=== PATIENT | female | born 1950 | race Caucasian/White ===

== ENCOUNTER 2017-04-12 18:25 | Emergency (ER) | payer MEDICARE, SELFPAY ==
[2017-04-12 18:26] VITALS: BP 129/81; PULSE 69; RESP 14; TEMP 36.7; O2SAT 98; BMI 28.3
--- NOTE | 2017-04-12 18:34 | XR_ITS ---
XR chest 2V Ordering Physician: Catracho Fernando MD Patient Age: 67 years: Female HISTORY: ITS.REASON: chest pressure TECHNIQUE: PA and lateral chest COMPARISON :08/05/2011 chest 2 views FINDINGS . The lungs well expanded and clear with no active disease. No significant change since prior study . Small calcified granulomas at periphery the right lung projecting over the posterior seventh. This is similar to 2012 CXR. The lateral view appears stable with no significant new findings. Mild degenerative changes mid T-spine with very slight loss of height mid thoracic vertebral body again noted and stable. Ribs intact. No pleural effusion or pleural findings IMPRESSION: Lungs clear no active disease.
--- NOTE | 2017-04-12 19:08 | HMH.EDCP ---
ED Disposition Condition on Discharge: Good Time of Disposition: 21:36 - Critical Care Critical Care Time: No <CarlosKilo - Last Filed: 04/12/17 21:31> Condition on Discharge: Good <Catracho Fernando - Last Filed: 04/08/18 12:56> Clinical Impression: Atypical chest pain Disposition: Home, Self-Care Instructions: DI for Atypical Chest Pain Referrals: Sukhwinder Beasley MD [Staff Physician] - Attestation: On 04/12/17, the high probability of a clinically significant, sudden or life threatening deterioration of the following system(s) required my full and direct attention, intervention and personal management. The time I documented below is in addition to time spent performing reported procedures but includes the following listed in this critical care notation. Medical Decision Making - Medical Records Medical records reviewed: Yes: I reviewed the patient's medical records. - Natanael Inquiry Pt receiving controlled substance: No Natanael was queried for this patient: No - Lab Data Result diagrams: 04/12/17 18:30 04/12/17 18:30 <Catracho Fernando - Last Filed: 04/08/18 12:56> Vital Signs: 04/12/17 18:26 04/12/17 22:01 Temperature 98.1 F 98.6 F Temperature Source Oral Oral Pulse Rate 65 Pulse Rate [Left Brachial] 69 Respiratory Rate 14 16 Blood Pressure 130/91 Blood Pressure [Right Arm] 129/81 Blood Pressure Mean [Right Arm] 97 Blood Pressure Source Automatic Cuff Blood Pressure Source [Right Arm] Automatic Cuff Blood Pressure Position Supine Blood Pressure Position [Right Arm] Supine 02 Sat by Pulse Oximetry 98 Oxygen Delivery Method Room Air Room Air - Lab Data Lab Results 04/12/17 18:30: WBC 6.8, RBC 4.44, Hgb 12.5, Hct 39.0, MCV 87.7, MCH 28.2, MCHC 32.1, RDW 12.6, Plt Count 241, MPV 7.6, Neut % (Auto) 52.4, Lymph % (Auto) 40.5, [place] % (Auto) 5.8, Eos % (Auto) 0.9, Baso % (Auto) 0.4, Neut # (Auto) 3.6, Lymph # (Auto) 2.8, [place] # (Auto) 0.4, Eos # (Auto) 0.1, Baso # (Auto) 0.0 04/12/17 18:30: Sodium 141, Potassium 3.8, Chloride 104, Carbon Dioxide 32, Anion Gap 8.8, BUN 17, Creatinine 0.75, Estimated Creat Clear 62, Estimated GFR > 60, Est GFR ( Amer) > 60, Glucose 93, Calcium 8.9, Total Bilirubin 0.2, AST 16, ALT 31, Alkaline Phosphatase 56, Total Creatine Kinase 57, CK-MB (CK-2) < 0.5, CK-MB (CK-2) Rel Index 0.9, Troponin I < 0.02, Total Protein 6.4, Albumin 3.5, Globulin 2.9, Albumin/Globulin Ratio 1.2 Orders (Tests/Meds): ED MEDICATIONS Discontinued Medications Generic Name Dose Route Start Last Admin Trade Name Freq PRN Reason Stop Dose Admin Belladonna Alkaloids 60 ml 04/12/17 19:12 04/12/17 19:25 Gi Cocktail 60ml Udc PO 04/12/17 19:13 60 ml ONCE ONE Administration Ketorolac Tromethamine 30 mg 04/12/17 21:39 04/12/17 21:59 Toradol 30mg/Ml Vial IV 04/12/17 21:40 30 mg ONCE ONE Administration Sodium Chloride 10 ml 04/12/17 18:34 Saline Flush 10ml Syringe IV 05/12/17 18:33 NEEDED PRN Maintain IV Site Chest Pain HPI - JIE Score Non-Stemi Age of patient: 65 yrs or more Number of risk factors for CAD: Presence of less than 3 Prior coronary artery stenosis(seen in coronary angiography): Less than 50% ST-Segment deviation on ECG (more than 1 min): Absent Prior aspirin intake: No ASA in the last 7 days Severe anginal chest pain: No or one episode in last 24 hours Elevated cardiac markers(CK-MB or troponin): Absent Non-Stemi Risk Score: 1 Risk Stratification: 0-2= Low Risk Patients <Kilo Gonzalez - Last Filed: 04/12/17 21:31> - General Mode of Arrival: Ambulatory Limitations: No Limitations Description of Symptoms (Recalled from ER Triage Doc. by RN): PT C/OPRESSURE IN HER EPIGASTRIC/ CHEST AREA THAT HAS BEEN ONGOING FOR THE. PAST COUPLE OF DAYS. PT ADVISES SHE HAD THE FLU LAST WEEK - History of Present Illness MD complaint: other (up
[2017-04-12 19:11] LABS: Alanine Aminotransferase 31 U/L (12-78); Albumin Level 3.5 gm/dL (3.4-5.0); Albumin/Globulin Ratio 1.2 (1.1-1.8); Alkaline Phosphatase 56 U/L (46-116); Anion Gap 8.8 mEq/L (5-15); Aspartate Amino Transferase 16 U/L (15-37); Bilirubin,Total 0.2 mg/dL (0.2-1.0); Blood Urea Nitrogen 17 mg/dL (7-18); Calcium 8.9 mg/dL (8.5-10.1); Carbon Dioxide 32 mmol/L (21.0-32.0); Chloride 104 mmol/L (98-107); Creatine Kinase 57 U/L (26-140); Creatinine Clearance Estimated 62 mg/ml (0-300); Creatinine,Serum 0.75 mg/dL (0.55-1.02); Estimated Glomerular Filt Rate > 60 ml/min (>60); GFR (African American) > 60 ML/MIN (>60); Globulin 2.9 gm/dl (1.3-3.2); Glucose 93 mg/dL (74-106); Potassium 3.8 mmoL/L (3.5-5.1); Sodium 141 mmol/L (136-145); Total Protein,Serum 6.4 gm/dL (6.4-8.2); Troponin I < 0.02 ng/ml (0.00-0.06)
--- NOTE | 2017-04-12 19:11 | ED_ITS ---
ED Disposition Condition on Discharge: Good Time of Disposition: 21:36 - Critical Care Critical Care Time: No <CarlosKilo - Last Filed: 04/12/17 21:31> Condition on Discharge: Good <Catracho Fernando - Last Filed: 04/08/18 12:56> Clinical Impression: Atypical chest pain Disposition: Home, Self-Care Instructions: DI for Atypical Chest Pain Referrals: Sukhwinder Beasley MD [Staff Physician] - Attestation: On 04/12/17, the high probability of a clinically significant, sudden or life threatening deterioration of the following system(s) required my full and direct attention, intervention and personal management. The time I documented below is in addition to time spent performing reported procedures but includes the following listed in this critical care notation. Medical Decision Making - Medical Records Medical records reviewed: Yes: I reviewed the patient's medical records. - Natanael Inquiry Pt receiving controlled substance: No Natanael was queried for this patient: No - Lab Data Result diagrams: 04/12/17 18:30 04/12/17 18:30 <Catracho Fernando - Last Filed: 04/08/18 12:56> Vital Signs: 04/12/17 18:26 04/12/17 22:01 Temperature 98.1 F 98.6 F Temperature Source Oral Oral Pulse Rate 65 Pulse Rate [Left Brachial] 69 Respiratory Rate 14 16 Blood Pressure 130/91 Blood Pressure [Right Arm] 129/81 Blood Pressure Mean [Right Arm] 97 Blood Pressure Source Automatic Cuff Blood Pressure Source [Right Arm] Automatic Cuff Blood Pressure Position Supine Blood Pressure Position [Right Arm] Supine 02 Sat by Pulse Oximetry 98 Oxygen Delivery Method Room Air Room Air - Lab Data Lab Results 04/12/17 18:30: WBC 6.8, RBC 4.44, Hgb 12.5, Hct 39.0, MCV 87.7, MCH 28.2, MCHC 32.1, RDW 12.6, Plt Count 241, MPV 7.6, Neut % (Auto) 52.4, Lymph % (Auto) 40.5, [place] % (Auto) 5.8, Eos % (Auto) 0.9, Baso % (Auto) 0.4, Neut # (Auto) 3.6, Lymph # (Auto) 2.8, [place] # (Auto) 0.4, Eos # (Auto) 0.1, Baso # (Auto) 0.0 04/12/17 18:30: Sodium 141, Potassium 3.8, Chloride 104, Carbon Dioxide 32, Anion Gap 8.8, BUN 17, Creatinine 0.75, Estimated Creat Clear 62, Estimated GFR > 60, Est GFR ( Amer) > 60, Glucose 93, Calcium 8.9, Total Bilirubin 0.2, AST 16, ALT 31, Alkaline Phosphatase 56, Total Creatine Kinase 57, CK-MB (CK-2) < 0.5, CK-MB (CK-2) Rel Index 0.9, Troponin I < 0.02, Total Protein 6.4, Albumin 3.5, Globulin 2.9, Albumin/Globulin Ratio 1.2 Orders (Tests/Meds): ED MEDICATIONS Discontinued Medications Generic Name Dose Route Start Last Admin Trade Name Freq PRN Reason Stop Dose Admin Belladonna Alkaloids 60 ml 04/12/17 19:12 04/12/17 19:25 Gi Cocktail 60ml Udc PO 04/12/17 19:13 60 ml ONCE ONE Administration Ketorolac Tromethamine 30 mg 04/12/17 21:39 04/12/17 21:59 Toradol 30mg/Ml Vial IV 04/12/17 21:40 30 mg ONCE ONE Administration Sodium Chloride 10 ml 04/12/17 18:34 Saline Flush 10ml Syringe IV 05/12/17 18:33 NEEDED PRN Maintain IV Site
[2017-04-12 19:20] LABS: CKMB Relative Index 0.9 U/L (0-4.0); Creatine Kinase MB < 0.5 mg/ml (0.0-3.6)
[2017-04-12 19:43] LABS: Basophils % 0.4 % (0.1-2.0); Eosinophils # 0.1 K/mm3 (0.0-0.4); Eosinophils % 0.9 % (0.1-12.0); Hemoglobin 12.5 g/dL (12.2-16.2); Lymphocytes # 2.8 K/mm3 (0.7-4.5); Lymphocytes % 40.5 K/mm3 (10-50); Mean Corpuscular HGB Conc 32.1 g/dL (31.8-35.4); Mean Corpuscular Hemoglobin 28.2 pg (27.0-31.2); Mean Corpuscular Volume 87.7 fl (81-99); Mean Platelet Volume 7.6 fl (7.4-10.4); Monocytes # 0.4 K/mm3 (0.1-1.0); Monocytes % 5.8 % (1.7-9.3); Neutrophils # 3.6 K/mm3 (1.8-7.8); Neutrophils % 52.4 % (37.0-80.0); Platelet Count 241 K/mm3 (142-424); Red Blood Count 4.44 M/mm3 (4.20-5.40); Red Cell Distribution Width 12.6 % (11.5-17.5); White Blood Count 6.8 K/mm3 (4.8-10.8)
[2017-04-12 22:01] VITALS: BP 130/91; PULSE 65; RESP 16; TEMP 37
== END 2017-04-12 22:10 | disposition home or self-care (01) ==
PROVIDERS: Family Medicine; Emergency Provider Emergency Medicine; PCP Family Medicine
DX: R07.89 Other chest pain (principal)
CPT/HCPCS: 71046; 80053; 82550; 82553; 84484; 85025; 93005; 93041; 96374; 99284

== ENCOUNTER → 2017-05-22 10:12 | Outpatient (CLI) | payer MEDICARE, SELFPAY ==
--- NOTE | 2017-05-22 10:22 | XR_ITS ---
XR KUB CLINICAL INDICATION: ITS.REASON: ABD BLOATING, CONSTIPATION ORDERING PHYSICIAN: Lynnette Donato PATIENT AGE: 67 years COMPARISON: None FINDINGS: There is a moderate amount retained colonic feces in the ascending colon. No evidence of small bowel obstruction or other acute anomalies. Facet arthritic changes are present on the right at L4-5. IMPRESSION: Constipation
== END ==
PROVIDERS: PCP Nurse Practitioner Family; Visit Provider Nurse Practitioner Family
DX: R14.0 Abdominal distension (gaseous) (principal); K59.01 Slow transit constipation
CPT/HCPCS: 74018

== ENCOUNTER → 2017-05-25 10:22 | Outpatient (CLI) | payer MEDICARE, SELFPAY ==
--- NOTE | 2017-05-25 10:37 | XR_ITS ---
XR abdomen min 2V HISTORY: ITS.REASON: ABD PAIN, SLOW TRANSIT CONSTIPATION, NAUSEA ORDERING PHYSICIAN: Lynnette Donato PATIENT AGE: 67 years COMPARISON: None FINDINGS: There is a moderate amount retained colonic feces greater in the right colon and transverse colon and proximal descending colon. No evidence of rectal fecal impaction. There is mild wedging of the left lateral aspect of L2. No urolithiasis. IMPRESSION: Constipation
[2017-05-25 10:47] LABS: Basophils % 0.7 % (0.1-2.0); Eosinophils % 0.8 % (0.1-12.0); Hematocrit 44.5 % (37.0-47.0); Hemoglobin 13.9 g/dL (12.2-16.2); Lymphocytes # 1.4 K/mm3 (0.7-4.5); Lymphocytes % 32.1 K/mm3 (10-50); Mean Corpuscular HGB Conc 31.2 g/dL (31.8-35.4); Mean Corpuscular Hemoglobin 28.1 pg (27.0-31.2); Mean Platelet Volume 7.9 fl (7.4-10.4); Monocytes # 0.3 K/mm3 (0.1-1.0); Monocytes % 7.1 % (1.7-9.3); Neutrophils # 2.6 K/mm3 (1.8-7.8); Neutrophils % 59.4 % (37.0-80.0); Platelet Count 234 K/mm3 (142-424); Red Blood Count 4.95 M/mm3 (4.20-5.40); White Blood Count 4.4 K/mm3 (4.8-10.8)
[2017-05-25 11:05] LABS: Alanine Aminotransferase 29 U/L (12-78); Albumin Level 3.5 gm/dL (3.4-5.0); Albumin/Globulin Ratio 1.1 (1.1-1.8); Alkaline Phosphatase 66 U/L (46-116); Amylase 67 U/L (25-125); Anion Gap 9.9 mEq/L (5-15); Aspartate Amino Transferase 12 U/L (15-37); Bilirubin,Total 0.3 mg/dL (0.2-1.0); Blood Urea Nitrogen 12 mg/dL (7-18); Calcium 9.1 mg/dL (8.5-10.1); Carbon Dioxide 30 mmol/L (21.0-32.0); Chloride 108 mmol/L (98-107); Creatinine,Serum 0.76 mg/dL (0.55-1.02); Estimated Glomerular Filt Rate 76 ml/min (>60); GFR (African American) 92 ML/MIN (>60); Globulin 3.2 gm/dl (1.3-3.2); Glucose 98 mg/dL (74-106); Lipase 160 u/L (73-393); Potassium 5.9 mmoL/L (3.5-5.1); Sodium 142 mmol/L (136-145); Total Protein,Serum 6.7 gm/dL (6.4-8.2)
== END ==
PROVIDERS: PCP Nurse Practitioner Family; Visit Provider Nurse Practitioner Family
DX: R10.84 Generalized abdominal pain (principal); K59.01 Slow transit constipation; R11.0 Nausea
CPT/HCPCS: 36415; 74019; 80053; 82150; 83690; 85025

== ENCOUNTER 2017-07-19 10:27 | Day surgery (SDC) | payer MEDICARE, SELFPAY ==
[2017-07-15 14:09] VITALS: BMI 27.4
[2017-07-19 10:40] VITALS: BP 117/83; PULSE 74; RESP 18; TEMP 36.6; O2SAT 98
[2017-07-19 11:25] VITALS: O2SAT 98
--- NOTE | 2017-07-19 11:32 | P.PN_ITS ---
[facility] Anesthesia Checklist - Patient Identification Patient Identification: Arm Band, Verbal (Name & ) - Structural Data Admitted From: Home Consent for Planned Operative Procedure(s) Verified: Yes Verified Documents: Surgical Consent, History and Physical - NPO Status Verified Time NPO: 00:00 - Additional verifications Patient : No Anesthesia Reactions: No - Airway Assessment C-Spine Mobility Assessed: Yes TMJ Mobility Assessed: Yes Dentition: Dentures-good fit - Neurological Assessment Level of Consciousness: Awake Hx Seizures: No Numbness or tingling in extremities: No - Anesthesia Plan Anesthesia Risk discussed: Yes Anesthesia Plan: Verified ASA Class: II Anesthesia Type: MAC [facility] Anesthesia HX I have reviewed the patient's past medical history: Yes Medical History: Reports:: Anxiety, Gastroesophageal Reflux Disease(GERD), Hyperlipidemia, Hypertension Denies:: Cancer, Diabetes Mellitus Type 1, Diabetes Mellitus Type 2, Internal Pacemaker, Lung Disease, MRSA, Seizures Other Surgeries: No: Pacemaker Amputation: No Fractures: No
--- NOTE | 2017-07-19 11:56 | HMH.PROC ---
[facility] Procedure Note Procedure Note:: Colonoscopy Procedure Report: Colonoscopy with cold snare polypectomy and hemorrhoid band ligation Endoscopist: Bairon Chang II, MD Referring physician: Lynnette CUI Date of Procedure: July 19, 2017 Equipment: Olympus 180 variable stiffness pediatric colonoscope Sedation: MAC sedation Indication: Mrs. Martino is a 67-year-old female who is here for follow-up screening/surveillance colonoscopy. This is her second colonoscopy and her first colonoscopy 4 or 5 years ago in [place] revealed no colon polyps. The patient does state that her father (early 60s) and brother (age 58) had colon cancer. Her brother had more advanced colon cancer. The patient does have some bright red rectal bleeding attributable to prolapsed internal hemorrhoids. She does have a history of IBS with both constipation alternating with diarrhea. She has had some dyspepsia and reflux which has improved. She attributes this to stress. She reports no weight loss. Procedure: Prior to the procedure, a history and physical exam was performed, and patient's medications and allergies were reviewed. The risks, benefits and alternatives of the sedation and procedure were discussed with the patient. All questions were answered and informed consent was obtained. The patient was brought to the procedure room. Patient identification and proposed procedure were verified by the physician and the nurse. The patient was placed in a left lateral decubitus position and the scope was passed under direct vision. Throughout the procedure, the patient's blood pressure, pulse, and oxygen saturations were monitored continuously. The colonoscopy was accomplished without difficulty. The patient tolerated the procedure well. Findings: On digital rectal examination there was normal rectal tone. There were no external hemorrhoids. The colonoscope was introduced through the anal canal to the rectum and advanced to the cecum. The ileocecal valve and appendiceal orifice were identified. The scope was advanced a short distance into the ileum which appeared grossly normal. The scope was then withdrawn into the colon. There were 3 colon polyps identified in the ascending ?2 and descending ?1. These ranged in size from 3-7 mm and were all removed via cold snare polypectomy. There were very mildly scattered diverticuli throughout the descending and sigmoid colon (LEFT colon). The rectum itself was normal. Upon retroflexion within the rectum there were grade 2 internal hemorrhoids. There was active cryptitis. The hemorrhoids were banded using 3 bands with excellent ligation effect. Impression: 1. Colonic polyps ?3 2. Mild left-sided diverticulosis 3. Grade 2 internal hemorrhoids with active cryptitis status post band ligation ?3 Plan: I will follow up the polyp pathology and recommend repeat colonoscopy again in 5 years based upon the polyp histology. I would encourage fiber supplementation on a long-term daily maintenance basis.
[2017-07-19 12:15] VITALS: BP 118/71; PULSE 72; O2SAT 100
[2017-07-19 12:18] VITALS: BP 106/68; PULSE 76; RESP 20; TEMP 36.2; O2SAT 98
[2017-07-19 12:35] VITALS: BP 108/78; PULSE 73; RESP 16; O2SAT 100
[2017-07-19 13:02] VITALS: BP 129/84; PULSE 78; RESP 16; TEMP 36.2; O2SAT 100
== END 2017-07-19 13:02 | disposition home health service (06) ==
LOC: OUTP 10:29
PROVIDERS: PCP Family Medicine; Visit Provider Internal Medicine Gastroenterology
PROC: 0DJD8ZZ Inspection of Lower Intestinal Tract, Via Natural or Artificial Opening Endoscopic (ICD-10-PCS; CPT 45378; principal; 2017-07-19 11:30)
DX: Z12.11 Encounter for screening for malignant neoplasm of colon (principal); Z80.0 Family history of malignant neoplasm of digestive organs; K58.2 Mixed irritable bowel syndrome; K63.5 Polyp of colon; K57.30 Diverticulosis of large intestine without perforation or abscess without bleeding; K64.1 Second degree hemorrhoids
CPT/HCPCS: 45385; 45398; 88305

== ENCOUNTER → 2017-11-18 08:44 | Outpatient (CLI) | payer MEDICARE, SELFPAY ==
--- NOTE | 2017-11-18 08:49 | FL_ITS ---
FL upper GI esophagus w/air HISTORY: Difficulty swallowing, GERD ORDERING PHYSICIAN: Chris Dodge MD PATIENT AGE: 67 years Comparison: None FINDINGS: The esophagus, stomach, and duodenum have an unremarkable appearance. There is a small sliding hiatal hernia . Reflux was not demonstrated during exam. No ulcer or mass evident. No mucosal abnormalities apparent. There is normal peristalsis. The duodenal C-loop is nondisplaced.. There is a small diverticulum projecting off the transverse portion of the duodenum FLUOROSCOPY TIME : 1 minute 25 seconds. IMPRESSION: Small sliding hiatal hernia otherwise negative upper
== END ==
PROVIDERS: PCP Family Medicine; Visit Provider Internal Medicine Adolescent Medicine
DX: K21.9 Gastro-esophageal reflux disease without esophagitis (principal); R09.89 Other specified symptoms and signs involving the circulatory and respiratory systems
CPT/HCPCS: 74241

== ENCOUNTER → 2018-01-31 16:15 | Outpatient (CLI) | payer MEDICARE, SELFPAY ==
[2018-01-31 16:32] LABS: Basophils % 0.3 % (0.1-2.0); Eosinophils # 0.1 K/mm3 (0.0-0.4); Eosinophils % 1.1 % (0.1-12.0); Hemoglobin 13.8 g/dL (12.2-16.2); Lymphocytes # 2.3 K/mm3 (0.7-4.5); Lymphocytes % 29.8 K/mm3 (10-50); Mean Corpuscular HGB Conc 32.9 g/dL (31.8-35.4); Mean Corpuscular Hemoglobin 29.3 pg (27.0-31.2); Mean Platelet Volume 7.6 fl (7.4-10.4); Monocytes # 0.4 K/mm3 (0.1-1.0); Monocytes % 5.5 % (1.7-9.3); Neutrophils # 4.9 K/mm3 (1.8-7.8); Neutrophils % 63.2 % (37.0-80.0); Platelet Count 241 K/mm3 (142-424); Red Blood Count 4.71 M/mm3 (4.20-5.40); Red Cell Distribution Width 13.2 % (11.5-17.5); White Blood Count 7.8 K/mm3 (4.8-10.8)
[2018-01-31 18:22] LABS: Alanine Aminotransferase 31 U/L (12-78); Albumin Level 3.7 gm/dL (3.4-5.0); Albumin/Globulin Ratio 1.2 (1.1-1.8); Alkaline Phosphatase 80 U/L (46-116); Anion Gap 11.2 mEq/L (5-15); Aspartate Amino Transferase 15 U/L (15-37); Bilirubin,Total 0.2 mg/dL (0.2-1.0); Blood Urea Nitrogen 19 mg/dL (7-18); Calcium 8.9 mg/dL (8.5-10.1); Carbon Dioxide 28 mmol/L (21.0-32.0); Chloride 104 mmol/L (98-107); Estimated Glomerular Filt Rate 72 ml/min (>60); Free Thyroxine Index 2.5 ug/dL (5.93-13.13); GFR (African American) 87 ML/MIN (>60); Globulin 3.2 gm/dl (1.3-3.2); Glucose 81 mg/dL (74-106); Potassium 4.2 mmoL/L (3.5-5.1); Sodium 139 mmol/L (136-145); T4 (Thyroxine) 7.7 ug/dl (4.7-13.3); Total Protein,Serum 6.9 gm/dL (6.4-8.2); Triiodothryronine (T3) Uptake 33 % (31-39)
[2018-02-02 15:56] LABS: Vitamin B12 424 pg/mL (232-1245); Vitamin D 25 Hydroxy 17.2 ng/mL (30.0-100.0)
== END ==
PROVIDERS: PCP Internal Medicine Adolescent Medicine; Visit Provider Internal Medicine Adolescent Medicine
DX: R25.1 Tremor, unspecified (principal)
CPT/HCPCS: 36415; 80053; 82607; 82652; 83735; 84436; 84443; 84479; 85025

== ENCOUNTER → 2018-06-01 15:17 | Outpatient (CLI) | payer MEDICARE, SELFPAY ==
[2018-06-01 15:40] LABS: Basophils % 0.7 % (0.1-2.0); Eosinophils % 0.6 % (0.1-12.0); Hematocrit 43.8 % (37.0-47.0); Hemoglobin 14.4 g/dL (12.2-16.2); Lymphocytes # 1.7 K/mm3 (0.7-4.5); Lymphocytes % 35.1 % (10-50); Mean Corpuscular HGB Conc 32.9 g/dL (31.8-35.4); Mean Corpuscular Hemoglobin 29.2 pg (27.0-31.2); Mean Corpuscular Volume 88.6 fl (81-99); Mean Platelet Volume 7.7 fl (7.4-10.4); Monocytes # 0.3 K/mm3 (0.1-1.0); Monocytes % 6.9 % (1.7-9.3); Neutrophils # 2.7 K/mm3 (1.8-7.8); Neutrophils % 56.8 % (37.0-80.0); Platelet Count 252 K/mm3 (142-424); Red Blood Count 4.94 M/mm3 (4.20-5.40); Red Cell Distribution Width 13.6 % (11.5-17.5); White Blood Count 4.7 K/mm3 (4.8-10.8)
[2018-06-01 16:36] LABS: Alanine Aminotransferase 24 U/L (12-78); Albumin Level 3.6 gm/dL (3.4-5.0); Albumin/Globulin Ratio 1.2 (1.1-1.8); Alkaline Phosphatase 77 U/L (46-116); Anion Gap 13.4 mEq/L (5-15); Aspartate Amino Transferase 9 U/L (15-37); Bilirubin,Total 0.4 mg/dL (0.2-1.0); Blood Urea Nitrogen 20 mg/dL (7-18); Calcium 9.2 mg/dL (8.5-10.1); Carbon Dioxide 27 mmol/L (21.0-32.0); Chloride 103 mmol/L (98-107); Creatinine,Serum 0.68 mg/dL (0.55-1.02); Estimated Glomerular Filt Rate 87 ml/min (>60); Free Thyroxine Index 2.5 ug/dL (5.93-13.13); GFR (African American) 105 ML/MIN (>60); Glucose 75 mg/dL (74-106); Potassium 4.4 mmoL/L (3.5-5.1); Sodium 139 mmol/L (136-145); T4 (Thyroxine) 6.6 ug/dl (4.7-13.3); Thyroid Stimulating Hormone 1.56 uIU/ml (0.358-3.740); Total Protein,Serum 6.6 gm/dL (6.4-8.2); Triiodothryronine (T3) Uptake 38 % (31-39)
[2018-06-03 10:54] LABS: Vitamin B12 409 pg/mL (232-1245)
[2018-06-07 06:15] LABS: Methylmalonic Acid 136 nmol/L (0-378)
== END ==
PROVIDERS: Visit Provider Internal Medicine Adolescent Medicine
DX: R44.1 Visual hallucinations (principal); R29.810 Facial weakness; Z79.899 Other long term (current) drug therapy
CPT/HCPCS: 36415; 80053; 82131; 82607; 84436; 84443; 84479; 85025

== ENCOUNTER → 2018-06-06 09:56 | Outpatient (CLI) | payer MEDICARE, SELFPAY ==
--- NOTE | 2018-06-06 09:58 | MR_ITS ---
MR head/brain wo con HISTORY: ITS.REASON: VISUAL HALLUCINATION ORDERING PHYSICIAN: Sukhwinder Pickens MD PATIENT AGE: 68 years Comparison: None TECHNIQUE: Standard multiplanar multiecho sequences are performed without contrast. FINDINGS: No midline shift, mass effect, intracranial hemorrhage, or hydrocephalus. No evidence of acute infarction. The cerebellopontine angles, cerebellum and brainstem have an unremarkable appearance. No temporal lobe mass. There are only a few scattered T2 white matter hyperintensities noted. The hippocampal gyri are unremarkable and the temporal horns are symmetric. No pituitary, optic chiasm, corpus callosum, and craniocervical junction are unremarkable. No mastoid effusion or sinus air-fluid level. IMPRESSION: Essentially negative MRI of the brain without contrast
== END ==
PROVIDERS: PCP Internal Medicine Adolescent Medicine; Visit Provider Internal Medicine Adolescent Medicine
DX: R44.1 Visual hallucinations (principal)
CPT/HCPCS: 70551

== ENCOUNTER → 2019-01-09 11:45 | Outpatient (CLI) | payer MEDICARE, SELFPAY ==
[2019-01-09 12:17] LABS: Basophils % 0.8 % (0.1-2.0); Eosinophils % 0.8 % (0.1-12.0); Hematocrit 43.4 % (37.0-47.0); Hemoglobin 13.2 g/dL (12.2-16.2); Lymphocytes # 1.8 K/mm3 (0.7-4.5); Lymphocytes % 33.9 % (10-50); Mean Corpuscular HGB Conc 30.4 g/dL (31.8-35.4); Mean Corpuscular Hemoglobin 27.8 pg (27.0-31.2); Mean Corpuscular Volume 91.6 fl (81-99); Mean Platelet Volume 7.4 fl (7.4-10.4); Monocytes # 0.4 K/mm3 (0.1-1.0); Monocytes % 6.8 % (1.7-9.3); Neutrophils % 57.7 % (37.0-80.0); Platelet Count 246 K/mm3 (142-424); Red Blood Count 4.74 M/mm3 (4.20-5.40); Red Cell Distribution Width 13.9 % (11.5-17.5); White Blood Count 5.2 K/mm3 (4.8-10.8)
[2019-01-09 14:22] LABS: Alanine Aminotransferase 19 U/L (12-78); Albumin Level 3.4 gm/dL (3.4-5.0); Albumin/Globulin Ratio 1.2 (1.1-1.8); Alkaline Phosphatase 58 U/L (46-116); Anion Gap 10.5 mEq/L (5-15); Aspartate Amino Transferase 9 U/L (15-37); Bilirubin,Total 0.3 mg/dL (0.2-1.0); Blood Urea Nitrogen 15 mg/dL (7-18); Calcium 9.1 mg/dL (8.5-10.1); Carbon Dioxide 29 mmol/L (21.0-32.0); Chloride 106 mmol/L (98-107); Estimated Glomerular Filt Rate 100 ml/min (>60); GFR (African American) 121 ML/MIN (>60); Globulin 2.8 gm/dl (1.3-3.2); Glucose 87 mg/dL (74-106); Potassium 4.5 mmoL/L (3.5-5.1); Sodium 141 mmol/L (136-145); Thyroid Stimulating Hormone 2.29 uIU/ml (0.358-3.740); Total Protein,Serum 6.2 gm/dL (6.4-8.2)
[2019-01-10 09:10] LABS: Vitamin B12 429 pg/mL (232-1245); Vitamin D 25 Hydroxy 34.3 ng/mL (30.0-100.0)
[2019-01-12 06:10] LABS: Rapid Plasma Reagin Ab Titer Non Reactive (NonRea<1:1)
== END ==
PROVIDERS: Visit Provider Nurse Practitioner Family
DX: Z79.899 Other long term (current) drug therapy (principal)
CPT/HCPCS: 36415; 80053; 82607; 82652; 84443; 85025; 86592

== ENCOUNTER → 2020-11-17 14:21 | Outpatient (CLI) | payer MEDICARE, SELFPAY | PROVIDERS: PCP Family Medicine; Visit Provider Family Medicine | DX: Z20.822 Contact with and (suspected) exposure to COVID-19 (principal) | CPT/HCPCS: U0003 ==

== ENCOUNTER → 2020-11-20 08:16 | Outpatient (CLI) | payer MEDICARE, SELFPAY ==
--- NOTE | 2020-11-20 08:19 | FL_ITS ---
PROCEDURE: FL BARIUM SWALLOW CLINICAL INDICATION: ESOPHAGEAL DYSPHAGIA COMPARISON: No exams were available for comparison TECHNIQUE: In the upright position the patient was observed to swallow barium in both the AP and lateral view. The cervical esophagus was examined under fluoroscopy with images obtained. The patient was then placed prone in the right anterior oblique position and was observed to swallow barium with Valsalva technique . FLUOROSCOPY TIME: 34 seconds FINDINGS: There was no evidence of aspiration. There was normal peristalsis. No filling defects or mucosal abnormalities. No masses or strictures. No hiatal hernia. Reflux was not demonstrated during the exam IMPRESSION: Negative barium swallow. Dictated by: Sánchez Gaxiola MD 11/20/2020 14:52 Sánchez Gaxiola MD in [place] 11/20/2020 14:52
--- NOTE | 2020-11-20 08:20 | US_ITS ---
PROCEDURE: US ABDOMEN LIMITED CLINICAL INDICATION: EOPHAGEAL DYSPHAGIA COMPARISON: No exams were available for comparison FINDINGS: PANCREAS: Unremarkable. No obvious mass or abnormal fluid collection. No ductal dilatation LIVER: No focal liver lesions demonstrated. Homogeneous echogenicity. No intrahepatic biliary ductal dilatation evident. There is appropriate direction of blood flow within a non dilated portal vein RIGHT KIDNEY: Unremarkable. Normal size and echogenicity. No hydronephrosis GALLBLADDER: There are at least 2 small foci of increased echogenicity along the posterior aspect of the gallbladder wall without obvious shadowing suggesting small polyps measuring 4 mm each. No gallbladder wall thickening, pericholecystic fluid, or biliary dilatation is evident. IMPRESSION: Small gallbladder polyps otherwise negative right upper quadrant ultrasound Dictated by: Sánchez Gaxiola MD 11/20/2020 16:33 Sánchez Gaxiola MD in [place] 11/20/2020 16:33
== END ==
PROVIDERS: PCP Family Medicine; Visit Provider Family Medicine
DX: R13.19 Other dysphagia (principal)
CPT/HCPCS: 74220; 76705

== ENCOUNTER 2021-03-16 15:28 | Emergency (ER) | payer MEDICARE, SELFPAY ==
[2021-03-16 17:18] VITALS: BP 148/66; PULSE 94; RESP 18; TEMP 37.2; O2SAT 97; BMI 29.2
[2021-03-16 17:22] LABS: Apearance,Urine Cloudy (Clear); Color,Urine Dark Yellow (Yellow)
[2021-03-16 17:23] LABS: Bilirubin,Urine 1+ (Negative); Blood, Urine 4+ (Negative); Glucose,Urine (UA) Negative (Negative); Ketones,Urine TRACE (Negative); PH,Urine 5.5 (5.0-8.5); Protein,Urine 2+ (Negative); Specific Gravity, Urine > 1.030 (1.005-1.030); UTC Leukocyte Esterase,Urine 3+ (Negative); UTC Nitrate,Urine Negative (Negative); Urobilinogen,Urine 0.2 EU/dl (0.2)
--- NOTE | 2021-03-16 17:28 | HMH.EDUTC ---
[facility] [place] Clinical Impression: UTI (urinary tract infection) Qualifiers: Urinary tract infection type: site unspecified Hematuria presence: with hematuria Qualified Code(s): N39.0 - Urinary tract infection, site not specified; R31.9 - Hematuria, unspecified Disposition: Home, Self-Care Condition on Discharge: Good Instructions: Urinary Tract Infection, DI for Urinary Tract Infection (UTI), Phenazopyridine Additional Instructions: Drink plenty of fluids. Take tylenol or ibuprofen for pain or fever. Take the medications as directed. Follow up with your regular doctor. GO TO THE ER FOR ANY WORSENING SYMPTOMS The pyridium will make your urine turn orange, this is an expected side effect. It will stain your clothes if it comes into contact with them. Prescriptions: Ondansetron [Zofran 4mg ODT] 4 mg PO Q8HP PRN #12 tab PRN Reason: Nausea Transmission Status: Pending to [id number] Ciprofloxacin HCl [Cipro 500mg Tab] 500 mg PO BID 7 Days #14 tab Transmission Status: Pending to [id number] Phenazopyridine HCl [Pyridium 200mg Tablet] 200 pow PO TID #6 tab Transmission Status: Pending to [id number] Referrals: Maddie Scanlon MD [Primary Care Provider] - Time of Disposition: 17:57 Medical Decision Making - Medical Records Medical records reviewed: No: I reviewed the patient's medical records. - Natanael Inquiry Pt receiving controlled substance: No Vital Signs: 03/16/21 17:18 Temperature 99 F Temperature Source Oral Pulse Rate [Left] 94 H Respiratory Rate 18 Blood Pressure [Right Arm] 148/66 H Blood Pressure Mean [Right Arm] 93 02 Sat by Pulse Oximetry 97 - Lab Data Lab results reviewed: Yes: I reviewed the patient's lab results. Lab Results 03/16/21 17:21: Urine Color Dark yellow, Urine Appearance Cloudy, Urine pH 5.5, Ur Specific [place] > 1.030 H, Urine Protein 2+, Urine Glucose (UA) Negative, Urine Ketones Trace, Urine Blood 4+, Urine Nitrate Negative, Urine Bilirubin 1+ A, Urine Urobilinogen 0.2, Ur Leukocyte Esterase 3+ A Orders (Tests/Meds): ED MEDICATIONS Discontinued Medications Generic Name Dose Route Start Last Admin Trade Name Eligio PRN Reason Stop Dose Admin Ceftriaxone Sodium 1 gm 03/16/21 17:32 03/16/21 17:40 Ceftriaxone 1gm Vial IM 03/16/21 17:33 1 gm ONCE ONE Administration Lidocaine HCl 0 ml 03/16/21 17:33 03/16/21 17:40 Lidocaine 1% 5ml Pf Vial IM 03/16/21 17:34 2 ml ONCE ONE Administration Ondansetron HCl 4 mg 03/16/21 17:32 03/16/21 17:39 Ondansetron 4mg Odt SL 03/16/21 17:33 4 mg ONCE ONE Administration Phenazopyridine HCl 200 mg 03/16/21 17:33 03/16/21 17:39 Phenazopyridine 200mg Tablet PO 03/16/21 17:34 200 mg ONCE ONE Administration ORDERS Category Date Time Status Urine Culture Stat Micro 03/16/21 17:21 Ordered [facility] [place]PI - General Stated complaint: possible bladder infection Time Seen by Provider: 03/16/21 17:28 Mode of Arrival: Ambulatory Source of Information: Patient Limitations: No Limitations Description of Symptoms (Recalled from Triage Doc. by RN): pt c/o burning and pain with urination. started this am. HEENT Symptoms (Recalled from RN notes): No Resp Symptoms (Recalled from RN notes): No Skin Symptoms (Recalled from RN notes): No MS Symptoms (Recalled from RN notes): No Functional Status (Recalled from RN notes): wnl - History of Present Illness Provider Complaint: She states that last night she started having low back pain and urinary frequency. - Related Data Home Medications Medication Instructions Recorded Confirmed PARoxetine HCL [Paxil 20mg Tablet] 20 mg PO DAILY 07/15/17 01/18/18 Omeprazole [Omeprazole 20mg 20 mg PO DAILY 12/30/17 01/18/18 Capsule] Previous Rx's Medication Instructions Recorded Ciprofloxacin HCl [Cipro 500mg 500 mg PO BID 7 Days #14 tab 03/16/21 Tab] Ondansetron [Zof
[2021-03-16 18:00] VITALS: BP 148/66; PULSE 94; RESP 18; TEMP 37.2
== END 2021-03-16 18:02 | disposition home or self-care (01) ==
PROVIDERS: Emergency Provider Nurse Practitioner Family; PCP Family Medicine
DX: N30.01 Acute cystitis with hematuria (principal); F41.9 Anxiety disorder, unspecified; K21.9 Gastro-esophageal reflux disease without esophagitis; E78.5 Hyperlipidemia, unspecified; I10 Essential (primary) hypertension; Z79.899 Other long term (current) drug therapy
CPT/HCPCS: G0463; 81003; 87086; 87088; 87186; 96372; 99202

== ENCOUNTER 2021-09-26 23:34 | Emergency (ER) | payer MEDICARE, SELFPAY ==
[2021-09-26 23:36] VITALS: BP 149/99; RESP 16; TEMP 37.1; O2SAT 96; BMI 30.2
--- NOTE | 2021-09-26 23:55 | XR_ITS ---
PROCEDURE INFORMATION: Exam: XR Chest Exam date and time: 09/27/2021 12:22 AM Age: 71 years old Clinical indication: Injury or trauma; Fall; Blunt trauma (contusions or hematomas); Additional info: Fall left chest pain TECHNIQUE: Imaging protocol: Radiologic exam of the chest. Views: 4 or more views. COMPARISON: CR CXR2V XR chest 2V 04/12/2017 6:41 PM FINDINGS: Lungs: Unremarkable. No consolidation. Pleural spaces: Unremarkable. No pleural effusion. No pneumothorax. Heart/Mediastinum: Unremarkable. No cardiomegaly. Bones/joints: Unremarkable. IMPRESSION: No acute findings.
--- NOTE | 2021-09-26 23:55 | XR_ITS ---
PROCEDURE INFORMATION: Exam: XR Pelvis Exam date and time: 09/27/2021 12:24 AM Age: 71 years old Clinical indication: Injury or trauma; Fall; Blunt trauma (contusions or hematomas); Bilateral; Pelvic region TECHNIQUE: Imaging protocol: Radiologic exam of the pelvis. Views: 1 or 2 view. COMPARISON: CR ABD2V XR abdomen min 2V 05/25/2017 10:40 AM FINDINGS: Bones/joints: Unremarkable. No acute fracture. Soft tissues: Unremarkable. IMPRESSION: No acute findings.
--- NOTE | 2021-09-26 23:56 | CT_ITS ---
PROCEDURE INFORMATION: Exam: CT Cervical Spine Without Contrast Exam date and time: 09/27/2021 12:14 AM Age: 71 years old Clinical indication: Injury or trauma; Fall; Blunt trauma; Additional info: Fall left neck pain TECHNIQUE: Imaging protocol: Computed tomography of the cervical spine without contrast. Radiation optimization: All CT scans at this facility use at least one of these dose optimization techniques: automated exposure control; mA and/or kV adjustment per patient size (includes targeted exams where dose is matched to clinical indication); or iterative reconstruction. COMPARISON: 1. CT HEAD/BRAIN WO CON 09/27/2021 12:11 AM 2. BRAINWO MR head/brain wo con 06/06/2018 10:27 AM FINDINGS: Bones/joints: No acute cervical spine fracture. The facet alignment is preserved bilaterally. The cervical lordosis is mildly reversed. Hypertrophic degenerative changes are identified at the junction of the anterior C1 arch and dens process. Grade 1 anterolisthesis of C7 on T1. Mild retrolisthesis of the bilateral C1 lateral masses on C2. Bilateral TMJ arthropathy. There is volume loss of the anterior C1 arch, likely secondary to arthropathy. Abnormal morphology of the dens process, with posterior projection or spurring. This is chronic compared to the previous MRI. Mild convexity of the cervical spine to the right. Discs/Spinal canal/Neural foramina: Mild degenerative changes are visualized involving the cervical spine. Paranasal sinuses: Effacement of the bilateral pyriform sinuses. Oropharynx: Effacement of the right vallecula, with mass effect in the region of the right lingual tonsil. Lungs: No pneumothorax, as visualized. Soft tissues: No significant prevertebral soft tissue swelling. IMPRESSION: 1. No acute cervical spine fracture. 2. The cervical lordosis is mildly reversed. 3. Grade 1 anterolisthesis of C7 on T1. Mild retrolisthesis of the bilateral C1 lateral masses on C2. 4. Mild degenerative changes are visualized involving the cervical spine. 5. Effacement of the right vallecula, with mass effect in the region of the right lingual tonsil. Clinical correlation recommended.
[2021-09-27 00:01] VITALS: BP 138/76; PULSE 82; O2SAT 95
--- NOTE | 2021-09-27 00:12 | CT_ITS ---
PROCEDURE INFORMATION: Exam: CT Head Without Contrast Exam date and time: 09/27/2021 12:11 AM Age: 71 years old Clinical indication: Injury or trauma; Fall; Blunt trauma (contusions or hematomas); Without loss of consciousness TECHNIQUE: Imaging protocol: Computed tomography of the head without contrast. Radiation optimization: All CT scans at this facility use at least one of these dose optimization techniques: automated exposure control; mA and/or kV adjustment per patient size (includes targeted exams where dose is matched to clinical indication); or iterative reconstruction. COMPARISON: BRAINWO MR head/brain wo con 06/06/2018 10:27 AM FINDINGS: Brain: No acute intracranial hemorrhage is visualized. The chambers-white differentiation is preserved demonstrating no acute territorial type infarct. There is no midline shift. There is mild extension of the medial right occipital lobe into the tentorial notch, which is a chronic finding compared to the previous exam. Cerebral ventricles: Mild age-appropriate prominence of ventricles and sulci. Paranasal sinuses: Visualized sinuses are unremarkable. No fluid levels. Mastoid air cells: No mastoid effusion. Bones/joints: The calvarium demonstrates no evidence for a depressed fracture. Hyperostosis frontalis interna. Soft tissues: Unremarkable. Vasculature: Intracranial atherosclerosis visualized. IMPRESSION: 1. No acute intracranial hemorrhage or acute territorial type infarct. 2. Additional findings described above.
--- NOTE | 2021-09-27 01:00 | PC.NURSE ---
PT REFUSES KNEE XRAY.
--- NOTE | 2021-09-27 01:01 | HMH.EDFALL ---
ED Disposition Clinical Impression: Left rib fracture Qualifiers: Encounter type: initial encounter Rib fracture type: multiple ribs Fracture type: closed Qualified Code(s): S22.42XA - Multiple fractures of ribs, left side, initial encounter for closed fracture Cervical strain, acute Qualifiers: Encounter type: initial encounter Qualified Code(s): S16.1XXA - Strain of muscle, fascia and tendon at neck level, initial encounter Disposition: Home, Self-Care Condition on Discharge: Good Instructions: DI for Rib Fracture Additional Instructions: fluids and see pcp for follow up Referrals: Maddie Scanlon MD [Primary Care Provider] - - Critical Care Critical Care Time: No Attestation: On 09/26/21, the high probability of a clinically significant, sudden or life threatening deterioration of the following system(s) required my full and direct attention, intervention and personal management. The time I documented below is in addition to time spent performing reported procedures but includes the following listed in this critical care notation. Medical Decision Making - Medical Records Medical records reviewed: Yes: I reviewed the patient's medical records. - Natanael Inquiry Pt receiving controlled substance: No Vital Signs: 09/26/21 23:36 09/27/21 00:01 Temperature 98.7 F Temperature Source Oral Pulse Rate 82 Respiratory Rate 16 Blood Pressure 138/76 Blood Pressure [Right Arm] 149/99 H Blood Pressure Mean [Right Arm] 115 Blood Pressure Source [Right Arm] Automatic Cuff Blood Pressure Position [Right Arm] Sitting 02 Sat by Pulse Oximetry 96 95 Oxygen Delivery Method Room Air Room Air - Lab Data Lab results reviewed: Yes: I reviewed the patient's lab results. - Radiology Data #1 Image(s): Chest, Pelvis Image Reviewed: Yes I have reviewed radiologist's interpretation Preliminary Findings: No Fracture Seen - CT Data CT Scan: Head, C-Spine, Chest, T-Spine Time Received: 01:[address] Reviewed: Yes: I have viewed the radiologist's interpretation Preliminary Findings: Abnormal, No Fracture Seen Medical Decision Narrative: fall with lt rib fx and stabnle exam Fall HPI - General Chief Complaint: Fall Stated Complaint: AO 09/26/21 1630 injury right breast Time Seen by Provider: 09/27/21 00:20 Mode of Arrival: Wheelchair Source of Information: Patient, Medical Record Limitations: No Limitations Description of Symptoms (Recalled from ER Triage Doc. by RN): PT SHOE GOT CAUGHT ON HER SEAT BELT AND SHE FELL AND LANDED ON LEFT SHOULDER AND CHEST. PT REPORTS PAIN WITH MOVEMENT AT THIS TIME. - History of Present Illness HPI Narrative: acute trip type injury this afternoon - and has ant chest pain and neck and back pain - no loc MD complaint: fall Onset (ago): hour(s) Fall from: other (getting out of car ) Place fall occurred: home Loss of consciousness: none Prolonged down time: no Context: tripped/slipped Location of injury: head, neck, chest, back Severity: moderate Associated symptoms (after fall): denies - Related Data Home Medications Medication Instructions Recorded Confirmed PARoxetine HCL [Paxil 20mg Tablet] 20 mg PO DAILY 07/15/17 01/18/18 Omeprazole [Omeprazole 20mg 20 mg PO DAILY 12/30/17 01/18/18 Capsule] Previous Rx's Medication Instructions Recorded Ciprofloxacin HCl [Cipro 500mg 500 mg PO BID 7 Days #14 tab 03/16/21 Tab] Ondansetron [Zofran 4mg ODT] 4 mg PO Q8HP PRN #12 tab 03/16/21 Phenazopyridine HCl [Pyridium 200 pow PO TID #6 tab 03/16/21 200mg Tablet] Allergies Allergy/AdvReac Type Severity Reaction Status Date / Time metoclopramide [From Reglan] Allergy Mild Muscle Pain Verified 01/18/18 09:35 morphine Allergy Mild Rash Verified 01/18/18 09:35 prochlorperazine Allergy Mild Muscle Pain Verified 01/18/18 09:35 [From Compazine] Sulfa (Sulfonamide Allergy Mild Rash Verified 01/18/18 09:35 Antibiotics) HM
--- NOTE | 2021-09-27 01:26 | CT_ITS ---
The PROCEDURE INFORMATION: Exam: CT Thoracic Spine Without Contrast Exam date and time: 09/27/2021 1:44 AM Age: 71 years old Clinical indication: Injury or trauma; Fall; Blunt trauma (contusions or hematomas) TECHNIQUE: Imaging protocol: Computed tomography of the thoracic spine without contrast. Radiation optimization: All CT scans at this facility use at least one of these dose optimization techniques: automated exposure control; mA and/or kV adjustment per patient size (includes targeted exams where dose is matched to clinical indication); or iterative reconstruction. COMPARISON: CT CHEST WO CON 09/27/2021 1:41 AM FINDINGS: Bones/joints: No acute fracture. There is mild 2 mm grade 1 anterolisthesis C7 upon T1. There are chronic multilevel degenerative endplate changes. Schmorl's node of the superior endplate of L2 noted. Discs/Spinal canal/Neural foramina: No significant disc protrusion. No severe spinal canal stenosis. No significant neural foraminal narrowing. Soft tissues: Unremarkable. IMPRESSION: 1. Mild grade 1 anterolisthesis C7 upon T1. 2. No acute findings.
--- NOTE | 2021-09-27 01:26 | CT_ITS ---
PROCEDURE INFORMATION: Exam: CT Chest Without Contrast; Diagnostic Exam date and time: 09/27/2021 1:41 AM Age: 71 years old Clinical indication: Injury or trauma; Fall; Blunt trauma (contusions or hematomas) TECHNIQUE: Imaging protocol: Diagnostic computed tomography of the chest without contrast. Radiation optimization: All CT scans at this facility use at least one of these dose optimization techniques: automated exposure control; mA and/or kV adjustment per patient size (includes targeted exams where dose is matched to clinical indication); or iterative reconstruction. COMPARISON: CR XR CHEST AP 09/27/2021 12:22 AM FINDINGS: Lungs: There is a 6 mm calcified nodule of the lateral right middle lobe. No focal consolidation. Pleural spaces: No pleural effusion or pneumothorax. Heart: Unremarkable. No cardiomegaly. No pericardial effusion. Lymph nodes: Calcified right hilar lymph nodes. No enlarged lymph nodes. Vasculature: Unremarkable. No aortic aneurysm. Spleen: Scattered splenic calcifications. Bones/joints: There is minimally displaced fracture of the left 4th rib anterolaterally. Nondisplaced fracture of the left 5th rib. Soft tissues: Unremarkable. IMPRESSION: 1. Minimally displaced fracture of the left 4th rib anterolaterally. Adjacent nondisplaced fracture left 5th rib. No pneumothorax. 2. Evidence of old granulomatous disease.
[2021-09-27 02:35] VITALS: BP 138/76; PULSE 82; RESP 16; TEMP 37.1; O2SAT 97
[2021-09-27 02:37] VITALS: BP 138/76; PULSE 88; RESP 18; TEMP 37.1; O2SAT 100
== END 2021-09-27 02:43 | disposition home or self-care (01) ==
PROVIDERS: Emergency Provider Emergency Medicine; PCP Family Medicine
DX: S22.42XA Multiple fractures of ribs, left side, initial encounter for closed fracture (principal); S16.1XXA Strain of muscle, fascia and tendon at neck level, initial encounter; R07.9 Chest pain, unspecified; M54.9 Dorsalgia, unspecified; I10 Essential (primary) hypertension; K21.9 Gastro-esophageal reflux disease without esophagitis; E78.5 Hyperlipidemia, unspecified; F41.9 Anxiety disorder, unspecified; Z79.899 Other long term (current) drug therapy; Z88.5 Allergy status to narcotic agent; Z88.8 Allergy status to other drugs, medicaments and biological substances; W01.0XXA Fall on same level from slipping, tripping and stumbling without subsequent striking against object, initial encounter
CPT/HCPCS: 70450; 71045; 71250; 72125; 72128; 72170; 99285

== ENCOUNTER → 2022-03-23 14:25 | Outpatient (CLI) | payer MEDICARE, SELFPAY ==
--- NOTE | 2022-03-23 14:28 | US_ITS ---
FINAL REPORT TECHNIQUE: Ultrasound imaging of the chest was obtained. CLINICAL HISTORY: CHEST MASS from fall in september FINDINGS: No mass or hematoma is seen in the area of interest. IMPRESSION: Unremarkable exam. Reviewed, Interpreted and Dictated by Hunter Retana III, MD Transcribed by Veronica Delgado Authenticated and [facility]
--- NOTE | 2022-03-23 14:28 | CT_ITS ---
FINAL REPORT TECHNIQUE: Axial imaging of the chest was obtained without contrast. Reformatted images were also obtained and reviewed.This study was performed with techniques to keep radiation doses as low as reasonably achievable, (ALARA). Individualized dose reduction technique using automated exposure control or adjustment of mA and/or kV according to the patient's size were employed. CLINICAL HISTORY: RIB FX COMPARISON: 09/27/2021 FINDINGS: There is no axillary adenopathy. There is no hilar or mediastinal mass or adenopathy. Heart size is normal. There is no pericardial or pleural effusion. There is a right middle lobe calcified granuloma. No suspicious infiltrate or nodule is identified on lung window images. There are subacute-chronic left lateral 3rd, 4th and 5th rib fractures. Limited imaging of the upper abdomen demonstrate a small gallstone. IMPRESSION: Subacute-chronic left lateral 3rd, 4th and 5th rib fractures. Reviewed, Interpreted and Dictated by Hunter Retana III, MD Transcribed by Veronica Delgado Authenticated and [facility]
== END ==
PROVIDERS: PCP Family Medicine; Visit Provider Nurse Practitioner Family
DX: R22.2 Localized swelling, mass and lump, trunk (principal); S22.32XA Fracture of one rib, left side, initial encounter for closed fracture
CPT/HCPCS: 71250; 76604

== ENCOUNTER 2022-08-06 21:52 | Emergency (ER) | payer MEDICARE, SELFPAY ==
[2022-08-06 21:54] VITALS: BP 138/70; PULSE 90; RESP 17; TEMP 36.6; O2SAT 95; BMI 24.3
--- NOTE | 2022-08-06 22:21 | ECG_ITS ---
APPROVED REPORT Exam: Resting ECG HR:86 bpm ECG Measurements Heart Rate 86 AXES UT 164 P 43 QRSd 96 QRS -22 QT 367 T 32 QTc 410 Conclusion SINUS RHYTHM BORDERLINE LEFT AXIS DEVIATION [QRS AXIS < -20] NONSPECIFIC ST & T-WAVE ABNORMALITY BORDERLINE ECG UNCONFIRMED REPORT Electronically signed by : Sukhwinder Pickens MD 08/07/2022 09:04:04
--- NOTE | 2022-08-06 22:25 | CT_ITS ---
PROCEDURE INFORMATION: Exam: CT Abdomen And Pelvis With Contrast Exam date and time: 08/06/2022 11:22 PM Age: 72 years old Clinical indication: Abdominal pain; Epigastric; Prior surgery; Surgery type: Hysterectomy TECHNIQUE: Imaging protocol: Computed tomography of the abdomen and pelvis with contrast. Radiation optimization: All CT scans at this facility use at least one of these dose optimization techniques: automated exposure control; mA and/or kV adjustment per patient size (includes targeted exams where dose is matched to clinical indication); or iterative reconstruction. Contrast material: ISOVUE; Contrast volume: 75 ml; Contrast route: IV; REPORTING DATA: Count of CT and Cardiac NM exams in prior 12 months: This patient has received 5 known CTs and 0 known cardiac nuclear medicine studies in the 12 months prior to the current study. COMPARISON: CR XR PELVIS 1-2V 09/27/2021 12:24 AM FINDINGS: Lungs: Incidental benign calcified nodule in visualized right lower lung zone. Liver: Normal. No mass. Gallbladder and bile ducts: Distended gallbladder with mild gallbladder wall thickening without pericholecystic fat stranding. Pancreas: Normal. No ductal dilation. Spleen: Normal. No splenomegaly. Adrenal glands: Normal. No mass. Kidneys and ureters: Normal. No hydronephrosis. Stomach and bowel: Dilated loops of large bowel. No small bowel loop dilatation. Appendix: Unremarkable. Intraperitoneal space: Unremarkable. No free air. No significant fluid collection. Vasculature: Unremarkable. No abdominal aortic aneurysm. Lymph nodes: Unremarkable. No enlarged lymph nodes. Urinary bladder: Unremarkable as visualized. Reproductive: Uterus and ovaries not visualized. Bones/joints: Unremarkable. No acute fracture. Soft tissues: Unremarkable. IMPRESSION: 1. Dilated large bowel loops favoring ileus pattern 2. Distended gallbladder without gallstone or gallbladder wall thickening.
--- NOTE | 2022-08-06 22:26 | XR_ITS ---
PROCEDURE INFORMATION: Exam: XR Chest Exam date and time: 08/06/2022 11:14 PM Age: 72 years old Clinical indication: Sternal or substernal pain; Additional info: Cp TECHNIQUE: Imaging protocol: Radiologic exam of the chest. Views: 1 view. COMPARISON: CT CHEST WO CON 03/23/2022 3:09 PM FINDINGS: Lungs: Benign calcified granuloma in right mid lung zone. Left lung clear. Pleural spaces: Unremarkable. No pleural effusion. No pneumothorax. Heart/Mediastinum: Unremarkable. No cardiomegaly. Bones/joints: Unremarkable. IMPRESSION: No acute radiographic findings identified.
[2022-08-06 22:30] VITALS: BP 138/70; PULSE 98; RESP 20; O2SAT 93
--- NOTE | 2022-08-06 22:32 | HMH.EDABDPAI ---
Discharge Plan Disposition Patient Disposition: Xfer Other Chief Complaint: Nausea/Vomiting/Diarrhea Prescriptions Prescriptions: No Action oxybutynin chloride 5 mg tablet 5 mg PO DAILY Flonase Sensimist 27.5 mcg/actuation spray,suspension 2 spray NS BID 14 Days Qty: 9.1 0RF Rx Instructions: into each nostril esomeprazole magnesium 40 mg capsule,delayed release(DR/EC) See Rx Instructions .ROUTE .COMPLEX Qty: 30 0RF Dose Instruction: Take 1 capsule by mouth once daily Rx Instructions: Take 1 capsule by mouth once daily paroxetine HCl 20 MG tablet 20 mg PO DAILY Label Comments: Referrals Follow up/Referrals: Maddie Scanlon MD [Primary Care Provider] - See instructions Clinical Impressions Clinical Impression: Acute cholecystitis Instructions Patient Instructions: DI for Diarrhea and Traveler's Diarrhea -- Adult, DI for Diarrhea and Traveler's Diarrhea -- Child, DI for Nausea -- Adult, DI for Nausea -- Child Discharge ED Provider: Jacquelyn Greer Abdominal Pain HPI General Chief Complaint: Nausea/Vomiting/Diarrhea Stated Complaint: pain in stomach, back Time Seen by Provider: 08/06/22 22:08 Mode of Arrival: Ambulatory Source of Information: Relative Limitations: No Limitations History of Present Illness HPI narrative: Patient is a 72-year-old male secondary to severe epigastric pain. Patient has severe epigastric pain radiating to the right upper quadrant and not to her back. Patient does not have epigastric pain rating to the chest. Patient has left rib and left back pain from rib fractures that was done in September 2022 this never got healed. Patient stated that she ate some meatballs yesterday had severe pain. Then she had pain today after eating some curly fries. She has her gallbladder she has her appendix. complaint: abdominal pain Onset (ago): hour(s) Consistency: constant Location: epigastric Severity: moderate Severity scale (1-10): 6 Quality: aching and dull Radiation: RUQ Migration to: RUQ Relieving factors: nothing Exacerbating factors: nothing Associated symptoms: nausea and vomiting Related Data Home Medications Medication Instructions Recorded Confirmed paroxetine HCl 20 mg tablet 20 mg PO DAILY Anxiety 07/15/17 01/18/18 oxybutynin chloride 5 mg tablet 5 mg PO DAILY 11/17/21 11/17/21 Previous Rx's Medication Instructions Recorded fluticasone furoate 27.5 2 spray intranasal BID 14 days 11/17/21 mcg/actuation nasal #9.1 mL spray,suspension (Flonase Sensimist) esomeprazole magnesium 40 mg See Rx Instructions .Route 05/11/22 capsule,delayed release .COMPLEX #30 caps Allergies Allergy/AdvReac Type Severity Reaction Status Date / Time metoclopramide [From Reglan] Allergy Mild Muscle Pain Verified 11/17/21 15:25 morphine Allergy Mild Rash Verified 11/17/21 15:25 prochlorperazine Allergy Mild Muscle Pain Verified 11/17/21 15:25 [From Compazine] Sulfa (Sulfonamide Allergy Mild Rash Verified 11/17/21 15:25 Antibiotics) [facility] Disclaimer: The information contained in this section may have been updated after the patient was seen, as this information can be updated by other users. Social History Smoking Status: Never smoker alcohol intake: never current occupational status: retired Travel in the last 8 weeks: None caffeine: No ROS Obtained: Yes All systems reviewed & no additional complaints except as documented Gastrointestinal Gastrointestingal: Reports abdominal pain, heartburn, nausea and vomiting Physical Exam General General appearance: alert and in distress Head Head exam: atraumatic, normocephalic and normal inspection Eye Eye exam: Present normal appearance, PERRL and EOMI; Absent scleral icterus or conjunctival redness ENT ENT exam: Present normal exam, normal oropharynx and mucous membranes dry; Absent mucous membra
[2022-08-06 22:51] LABS: Basophils % 0.2 % (0.1-2.0); Eosinophils # 0.1 K/mm3 (0.0-0.4); Eosinophils % 0.4 % (0.1-12.0); Hematocrit 44.3 % (37.0-47.0); Hemoglobin 14.3 g/dL (12.2-16.2); Lymphocytes # 1.1 K/mm3 (0.7-4.5); Lymphocytes % 9.2 % (10-50); Mean Corpuscular HGB Conc 32.3 g/dL (31.8-35.4); Mean Corpuscular Volume 89.8 fl (81-99); Monocytes # 0.5 K/mm3 (0.1-1.0); Monocytes % 3.9 % (1.7-9.3); Neutrophils # 10.2 K/mm3 (1.8-7.8); Neutrophils % 86.3 % (37.0-80.0); Platelet Count 294 K/mm3 (142-424); Red Blood Count 4.94 M/mm3 (4.20-5.40); Red Cell Distribution Width 14.1 % (11.5-17.5); White Blood Count 11.9 K/mm3 (4.8-10.8)
[2022-08-06 22:53] LABS: MANUAL DIFFERENTIAL MANUAL DIFFERENTIAL (MANUAL DIFF)
[2022-08-06 22:55] LABS: Chloride 102 mmol/L (98-107); Potassium 3.6 mmoL/L (3.5-5.1); Sodium 136 mmol/L (136-145)
[2022-08-06 22:57] LABS: Amylase 82 U/L (30-110); Lactic Acid 1.8 mmol/L (0.7-2.1)
[2022-08-06 22:58] LABS: Alanine Aminotransferase 620 U/L (12-78); Albumin Level 4.1 g/dl (3.5-5.0); Albumin/Globulin Ratio 1.2 (1.1-1.8); Alkaline Phosphatase 152 U/L (38-126); Anion Gap 12.6 mEq/L (5-15); Aspartate Amino Transferase 445 U/L (14-36); Bilirubin,Total 5.6 mg/dl (0.2-1.3); Blood Urea Nitrogen 15 mg/dl (7-17); Calcium 9.1 mg/dl (8.4-10.2); Carbon Dioxide 25 mmol/L (22.0-30.0); Creatinine Clearance Estimated 50 mL/min (50-200); Estimated Glomerular Filt Rate 71 ml/min (>60); GFR (African American) 86 ML/MIN (>60); Globulin 3.3 g/dL (1.3-3.2); Glucose 119 mg/dl (74-100); Lipase 134 U/L (23-300); Total Protein,Serum 7.4 g/dl (6.3-8.2)
[2022-08-06 22:59] LABS: INR 1.11 (0.9-1.1); Prothrombin Time 11.9 seconds (10.1-12.5)
[2022-08-06 23:00] VITALS: BP 99/74; PULSE 88; RESP 26; O2SAT 98
[2022-08-06 23:10] LABS: Troponin I < 0.01 ng/ml (0.00-0.034)
[2022-08-06 23:45] VITALS: BP 111/57; PULSE 89; O2SAT 97
[2022-08-06 23:55] LABS: Procalcitonin 1.75 ng/mL (0.0-2.0)
[2022-08-07] VITALS: BP 122/57; PULSE 89; O2SAT 95
--- NOTE | 2022-08-07 00:01 | PC.NURSE ---
spoke with Dr. Mar about pt. Dr. Mar stated the patient would need transferred to another facility
[2022-08-07 00:02] LABS: Lymphocytes % 6 % (10-50); Monocytes % 2 % (2-9); Neutrophils % 92 % (42-76); Platelet Estimate Normal; RBC Morphology Normal; Total Cells Counted 100
[2022-08-07 00:30] VITALS: BP 115/57; PULSE 85; O2SAT 96
[2022-08-07 01:00] VITALS: BP 120/61; PULSE 88; O2SAT 95
--- NOTE | 2022-08-07 01:12 | PC.NURSE ---
Dr. Greer speaking with Hospitalist at [facility] at this time
--- NOTE | 2022-08-07 01:16 | PC.NURSE ---
pt accepted at [facility].
[2022-08-07 01:30] VITALS: BP 122/72; PULSE 92; O2SAT 93
[2022-08-07 05:30] VITALS: BP 125/67; PULSE 92; RESP 16; TEMP 36.6; O2SAT 98
== END 2022-08-07 05:33 | disposition other institution (70) ==
PROVIDERS: Emergency Provider Emergency Medicine; PCP Family Medicine
DX: K81.0 Acute cholecystitis (principal)
CPT/HCPCS: 71045; 74177; 80053; 82150; 83605; 83690; 84145; 84484; 85007; 85025; 85610; 93005; 96374; 96375; 96376; 99291; J2405; J2543; Q9967

== ENCOUNTER → 2022-11-19 23:40 | Outpatient (CLI) | payer MEDICARE, SELFPAY | PROVIDERS: PCP Student in an Organized Health Care Education/Training Program; Visit Provider Student in an Organized Health Care Education/Training Program | DX: N39.0 Urinary tract infection, site not specified (principal); R31.9 Hematuria, unspecified | CPT/HCPCS: 87086 ==

== ENCOUNTER 2022-11-30 14:01 | Emergency (ER) | payer MEDICARE, SELFPAY ==
[2022-11-30 14:02] VITALS: BP 131/111; PULSE 102; RESP 18; TEMP 36.8; O2SAT 95; BMI 23.9
[2022-11-30 14:54] LABS: Microscopic, Urine URINE MICROSCOPIC (MICROSCOPIC)
[2022-11-30 14:55] LABS: Basophils % 0.5 % (0.1-2.0); Eosinophils # 0.1 K/mm3 (0.0-0.4); Eosinophils % 0.8 % (0.1-12.0); Hematocrit 45.3 % (37.0-47.0); Hemoglobin 14.6 g/dL (12.2-16.2); Lymphocytes # 1.8 K/mm3 (0.7-4.5); Lymphocytes % 22.7 % (10-50); Mean Corpuscular HGB Conc 32.3 g/dL (31.8-35.4); Mean Corpuscular Hemoglobin 28.9 pg (27.0-31.2); Mean Corpuscular Volume 89.3 fl (81-99); Monocytes # 0.5 K/mm3 (0.1-1.0); Monocytes % 6.3 % (1.7-9.3); Neutrophils # 5.6 K/mm3 (1.8-7.8); Neutrophils % 69.7 % (37.0-80.0); Platelet Count 284 K/mm3 (142-424); Red Blood Count 5.07 M/mm3 (4.20-5.40); Red Cell Distribution Width 13.8 % (11.5-17.5); White Blood Count 8.1 K/mm3 (4.8-10.8)
[2022-11-30 14:56] LABS: Appearance,Urine CLEAR (Clear); Bilirubin,Urine Negative (Negative); Blood, Urine Negative (Negative); Color,Urine YELLOW (Yellow); Glucose,Urine (UA) Negative (Negative); Ketones,Urine Negative (Negative); Leukocyte Esterase,Urine Negative (Negative); Nitrate,Urine Negative (Negative); Protein,Urine Negative (Negative); Specific Gravity, Urine <= 1.005 (1.005-1.030); Urobilinogen,Urine 0.2 EU/dl (0.2)
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
[2022-11-30 15:08] LABS: WBC,Urine Occasional #/hpf (0-3)
[2022-11-30 15:24] LABS: Alanine Aminotransferase 28 U/L (12-78); Albumin Level 4.5 g/dl (3.5-5.0); Albumin/Globulin Ratio 1.4 (1.1-1.8); Alkaline Phosphatase 79 U/L (38-126); Anion Gap 11.1 mEq/L (5-15); Aspartate Amino Transferase 31 U/L (14-36); Bilirubin,Total 0.5 mg/dl (0.2-1.3); Blood Urea Nitrogen 10 mg/dl (7-17); Calcium 9.6 mg/dl (8.4-10.2); Carbon Dioxide 27 mmol/L (22.0-30.0); Chloride 103 mmol/L (98-107); Creatinine Clearance Estimated 49 mL/min (50-200); Estimated Glomerular Filt Rate 71 ml/min (>60); GFR (African American) 86 ML/MIN (>60); Globulin 3.3 g/dL (1.3-3.2); Glucose 98 mg/dl (74-100); Potassium 4.1 mmoL/L (3.5-5.1); Sodium 137 mmol/L (136-145); Total Protein,Serum 7.8 g/dl (6.3-8.2)
--- NOTE | 2022-11-30 15:34 | ECG_ITS ---
APPROVED REPORT Exam: Resting ECG HR:82 bpm ECG Measurements Heart Rate 82 AXES NH 179 P 50 QRSd 89 QRS -3 QT 397 T 52 QTc 435 Conclusion SINUS RHYTHM POSSIBLE LEFT ATRIAL ENLARGEMENT [-0.1mV P-WAVE IN V1/V2] POSSIBLE RIGHT VENTRICULAR CONDUCTION DELAY [RSR (QR) IN V1/V2] SEPTAL MYOCARDIAL INFARCTION , OF INDETERMINATE AGE [40+ ms Q WAVE IN V1/V2] ABNORMAL ECG UNCONFIRMED REPORT Electronically signed by : Sukhwinder Pickens MD 12/03/2022 06:51:05
[2022-11-30 15:47] VITALS: BP 129/80; PULSE 85; RESP 17; TEMP 36.8; O2SAT 98
== END 2022-11-30 15:50 | disposition home or self-care (01) ==
PROVIDERS: Emergency Provider Emergency Medicine
DX: R00.0 Tachycardia, unspecified (principal)
CPT/HCPCS: 80053; 81001; 85025; 93005; 99285

== ENCOUNTER 2024-04-14 12:14 | Outpatient (CLI) | payer MEDICARE, SELFPAY ==
--- NOTE | 2024-04-14 12:36 | ECG_ITS ---
APPROVED REPORT Exam: Resting ECG HR:67 bpm ECG Measurements Heart Rate 67 AXES NH 184 P 54 QRSd 88 QRS -26 QT 418 T 30 QTc 433 Conclusion SINUS RHYTHM POSSIBLE RIGHT VENTRICULAR CONDUCTION DELAY [RSR (QR) IN V1/V2] Left axis deviation Old anteroseptal changes ABNORMAL ECG UNCONFIRMED REPORT Electronically signed by : Sukhwinder Pickens MD 04/15/2024 12:20:39
[2024-04-14 12:39] VITALS: BMI 24.5
[2024-04-14 12:55] LABS: Basophils % 0.8 % (0.1-2.0); Eosinophils % 0.8 % (0.1-12.0); Hematocrit 40.6 % (37.0-47.0); Hemoglobin 13.2 g/dL (12.2-16.2); Lymphocytes # 1.7 K/mm3 (0.7-4.5); Lymphocytes % 33.9 % (10-50); Mean Corpuscular HGB Conc 32.5 g/dL (31.8-35.4); Mean Corpuscular Hemoglobin 29.3 pg (27.0-31.2); Mean Corpuscular Volume 90.2 fl (81-99); Mean Platelet Volume 10.2 fl (7.4-10.4); Monocytes # 0.5 K/mm3 (0.1-1.0); Monocytes % 10.2 % (1.7-9.3); Neutrophils # 2.7 K/mm3 (1.8-7.8); Neutrophils % 54.1 % (37.0-80.0); Platelet Count 252 K/mm3 (142-424); Red Cell Distribution Width 13.1 % (11.5-17.5)
[2024-04-14 13:05] LABS: Chloride 104 mmol/L (98-107); Potassium 4.8 mmoL/L (3.5-5.1); Sodium 136 mmol/L (136-145)
[2024-04-14 13:08] LABS: Anion Gap 9.8 mEq/L (5-15); Blood Urea Nitrogen 20 mg/dl (7-17); Carbon Dioxide 27 mmol/L (22.0-30.0); Creatinine Clearance Estimated 49 mL/min (50-200); Estimated Glomerular Filt Rate 71 ml/min (>60); GFR (African American) 85 ML/MIN (>60)
[2024-04-14 13:09] LABS: Calcium 8.9 mg/dl (8.4-10.2); Glucose 88 mg/dl (74-100)
== END 2024-04-14 23:59 | disposition home or self-care (01) ==
LOC: PREOP 12:17
PROVIDERS: PCP Family Medicine; Visit Provider Otolaryngology
DX: Z01.810 Encounter for preprocedural cardiovascular examination (principal); Z01.812 Encounter for preprocedural laboratory examination; H65.92 Unspecified nonsuppurative otitis media, left ear; R94.31 Abnormal electrocardiogram [ECG] [EKG]
CPT/HCPCS: 80048; 85025; 93005

== ENCOUNTER 2024-05-10 08:33 | Outpatient (CLI) | payer MEDICARE, SELFPAY ==
--- NOTE | 2024-05-10 08:38 | CT_ITS ---
FINAL REPORT TECHNIQUE: After the administration of intravenous contrast, axial images were obtained through the abdomen and pelvis by computed tomography. The study was performed with techniques to keep radiation dose as low as reasonably achievable, (ALARA). Individual dose reduction techniques using automated exposure control or adjustment of mA and/or kV according to the patient's size were employed. CLINICAL HISTORY: HX OF PANCREATITIS COMPARISON: 08/06/2022 FINDINGS: Abdomen: The lung bases are clear. The liver parenchyma is homogeneous. The gallbladder is surgically. The spleen, pancreas, adrenals and kidneys appear unremarkable. The aorta is normal in caliber. There is no free fluid or adenopathy. Pelvis: There appears to be a couple of segments of mucosal thickening within the small bowel well-seen on images 79 through 82 of series 2 and images 91 through 94 of series 2. The appendix is not identified. The urinary bladder is unremarkable. There is no free fluid or adenopathy. IMPRESSION: Couple of segments of mucosal thickening within the small bowel of uncertain significance, inflammatory bowel disease is not excluded Reviewed, Interpreted and Dictated by Missael Sapp MD Transcribed by Shayla Rangel Authenticated and [facility]
[2024-05-10] MEDS: IOPAMIDOL-370 (76%);100ML BOTTLE 75 ML IV (08:59)
[2024-05-10] MEDS: SODIUM CHLORIDE 0.9% 10ML SYR (RAD ONLY) 10 ML IV (08:59)
== END 2024-05-10 23:59 | disposition home or self-care (01) ==
LOC: RAD 08:35
PROVIDERS: PCP Family Medicine; Visit Provider Family Medicine
DX: Z87.19 Personal history of other diseases of the digestive system (principal)
CPT/HCPCS: 74177; Q9967

== ENCOUNTER 2024-05-30 09:21 | Outpatient (CLI) | payer MEDICARE, SELFPAY ==
--- NOTE | 2024-05-30 09:26 | XR_ITS ---
FINAL REPORT TECHNIQUE: Bone densitometry calculations of the lumbar spine and left hip were obtained. CLINICAL HISTORY: screening COMPARISON: None FINDINGS: Using L1-4, the bone mineral density of the spine is 0.758 g/cm2, corresponding to T-score of -2.6 and a Z score of -0.4. This is within the range of osteoporosis. Using the left hip, the bone mineral density of the femoral neck is 0.595 g/cm2, corresponding to a T-score of -2.3 and a Z-score of -0.4. This is within the range of osteopenia. FRAX not reported because some T-score at or below-2.5. NOTE: T-score: Standard deviation compared with peak bone mass of young adult mean. *Following the recommendations of the International Society of Bone densitometry, classification of hip BMD is based on the lower of two T-scores; total hip or femoral neck. IMPRESSION: 1. Bone mineral density of the lumbar spine within the range of osteoporosis. 2. Bone mineral density of the left femoral neck within the range of osteopenia. Reviewed, Interpreted and Dictated by Sheyla Alatorre MD Transcribed by Faviola Hassan Authenticated and [facility]
--- NOTE | 2024-05-30 09:26 | MM_ITS ---
PROCEDURE INFORMATION: Exam: MG Bilateral Screening 3D Mammography Exam date and time: 05/30/2024 9:28 AM Age: 74 years old Clinical indication: Screening mammogram TECHNIQUE: Imaging protocol: Bilateral Screening tomosynthesis and 2D mammography including computer-aided detection (CAD) when performed. COMPARISON: No relevant prior studies available. FINDINGS: MAMMOGRAPHY: Breast composition: There are scattered areas of fibroglandular density. Mass: None. Architectural distortion: No new or suspicious architectural distortion. Calcifications: No new or suspicious calcifications are present Asymmetric density: No new or suspicious asymmetric density is present Skin thickening: None. Axillary adenopathy: None. IMPRESSION: No mammographic evidence of malignancy. Recommend annual screening mammography unless otherwise clinically indicated. ASSESSMENT: BI-RADS category 1: Negative.
== END 2024-05-30 23:59 | disposition home or self-care (01) ==
LOC: RAD 09:23
PROVIDERS: PCP Family Medicine; Visit Provider Family Medicine
DX: M85.88 Other specified disorders of bone density and structure, other site (principal); Z12.31 Encounter for screening mammogram for malignant neoplasm of breast
CPT/HCPCS: 77063; 77067; 77080

== ENCOUNTER 2024-06-21 07:19 | Day surgery (SDC) | payer MEDICARE, SELFPAY ==
[2024-06-19 13:55] VITALS: BMI 25.6
[2024-06-21] VITALS (11 sets, daily range): BP systolic 101–133; BP diastolic 48–88; PULSE 60–89; RESP 14–18; TEMP 36.2–37; O2SAT 91–100
[2024-06-21] MEDS: LACTATED RINGERS 1000ML 1,000 ML 50 ML IV (08:07)
--- NOTE | 2024-06-21 08:45 | EXP.ANES.CKL ---
[facility] Disclaimer: The information contained in this section may have been updated after the patient was seen, as this information can be updated by other users. Medical History (Updated 06/21/24 @ 07:52 by Roberta Valenzuela RN) Hyperlipidemia History of gastroesophageal reflux (GERD) Hypothyroid Left serous otitis media Dizziness Mixed hearing loss, bilateral Hearing difficulty of left ear Left ear pain Surgical History History of cholecystectomy History of total hysterectomy History of placement of ear tubes Family History (Updated 06/21/24 @ 07:52 by Roberta Valenzuela RN) Other Family history of cancer Stroke Social History (Updated 06/21/24 @ 07:54 by Roberta Valenzuela RN) Smoking Status: Never smoker alcohol intake: never substance use type: denies use current occupational status: retired Travel in the last 8 weeks: None caffeine: No Have you lived/traveled outside US in past 30 days?: No Contact w/someone who lives/traveled outside US past 30 days?: No Exposure to someone with infectious disease in past 14 days?: No Do you have a fever (greater than 100.4 F or 38 C)?: No Have you tested positive for COVID-19: No Exposed to someone with COVID-19 in past 14 days?: No Do you have a sore throat?: No Do you have a cough?: No Do you have any weakness?: No Are you experiencing any nausea/vomitting?: No Do you have any diarrhea?: No Are you experiencing any unusual bleeding?: No Do you have any muscle aches/pain?: No Do you have any abdominal pain?: No Are you experiencing loss of taste or smell?: No [facility] Anesthesia Checklist Patient Identification Patient Identification: Arm Band Structural Data Admitted From: Home Planned Operative Procedure/s: BMT Consent for Planned Operative Procedure(s) Verified: Yes Verified Documents: Surgical Consent and History and Physical NPO Status Verified Time NPO: 00:00 Additional verifications Anesthesia Reactions: No Hx Blood Transfusions: No Blood Transfusion Reaction: No Airway Assessment Mallampati Score:: Class II C-Spine Mobility Assessed: Yes TMJ Mobility Assessed: Yes Dentition: Dentures-good fit (removed) Neurological Assessment Level of Consciousness: Awake, Alert and Appropriate Anesthesia Plan Anesthesia Risk discussed: Yes Anesthesia Plan: Verified ASA Class: II Anesthesia Type: General
[2024-06-21] MEDS: CIPRO 0.3%-DEX 0.1% OTIC SUSP 7.5ML 7.5 ML OT (09:03)
--- NOTE | 2024-06-21 09:10 | P.OP_ITS ---
Date of procedure: 06/21/24 Pre-op Diagnosis:: Chronic serous otitis media, chronic eustachian tube dysfunction Post-op Diagnosis:: Chronic serous otitis media, chronic eustachian tube dysfunction Procedure performed:: Bilateral tympanostomy and tube placement Surgeon:: Jed Flores MD IRRIGATION SPECIALIST:: Chris Gilliland Anesthesia: GETA Estimated blood loss (mL): 0 Operative findings:: Retracted left tympanic membrane, right tympanic membrane was clear Operative note:: The patient was brought to the operating room and after adequate general anesthesia the ears were draped in the usual sterile fashion. The operating microscope was employed to visualize the tympanic membranes. Tympanostomies were made in the anterior-inferior quadrant. This was done bilaterally. Suction was employed to clear the middle ear space of effusion and then modified Martin T tubes placed bilaterally and then Ciprodex drops applied and the procedure concluded. All counts correct and blood loss was 0 Condition: stable Disposition: PACU Complications:: No complications
--- NOTE | 2024-06-21 09:20 | EXP.ANES.I ---
[facility] Anesthesia Record Part I Anesthesia Record I Intake, IV Amount: 200 Hydration: Adequate Estimated blood loss (mL): 0 Urine output (mL): 0 Blood Products used (#): none Blood Pressure: 104/69 SaO2: 91 Pulse Rate: 65 Airway Patency: Patent Respiratory Rate: 14 Temperature: 97.2 F Patient is:: Drowsy and Stable Stable to PACU at:: 09:14
--- NOTE | 2024-06-21 15:04 | EXP.ANES.II ---
[facility] Anesthesia Record Part II Anesthesia Record Part II Discharge Time: 09:45 Destination: Surgical Day Care (OP Surgery) PACU nurse assessment reviewed?: Yes Patient Condition:: Good Anesthesia Complications:: None Swallowing reflex intact?: Yes Airway Patency: Patent Cyanosis?: No Blood Pressure: 132/74 SaO2: 98 Respiratory Rate: 14 Pulse Rate: 60 Temperature: 97.9 F Mental Status: Alert & Oriented Pain level:: 0 Nausea and/or vomitting:: None Intake, IV Amount: 0 Hydration: Adequate
== END 2024-06-21 10:20 | disposition home or self-care (01) ==
PROVIDERS: PCP Family Medicine; Visit Provider Otolaryngology
PROC: (CPT 69436; principal; 2024-06-21 08:30)
DX: H65.23 Chronic serous otitis media, bilateral (principal); H69.83 Other specified disorders of Eustachian tube, bilateral
CPT/HCPCS: 69436; J1100; J2405; J7120

== ENCOUNTER 2024-09-14 15:14 | Outpatient (CLI) | payer MEDICARE, SELFPAY | END 2024-09-14 23:59 | disposition home or self-care (01) | LOC: LAB.DROPOF 15:15 | PROVIDERS: PCP Family Medicine; Visit Provider Student in an Organized Health Care Education/Training Program | DX: N39.0 Urinary tract infection, site not specified (principal); R31.9 Hematuria, unspecified | CPT/HCPCS: 87086; 87088; 87186 ==

== ENCOUNTER 2024-09-28 12:25 | Outpatient (CLI) | payer MEDICARE, SELFPAY ==
--- OUTSIDE RECORDS SUMMARY | 2024-09-29 13:51 | XMS_ITS | Data Portability ---
Author Organization [facility] DUARTE Jonas CROWELL CLOSED Address [address] [place] [address] Care Team Providers Care Securities Counselor Name Role Phone Jaida NORIEGA Primary Care Provider OMAR SCHULZ General Surgeon Assessment Encounter Date Assessment Date Assessment LastModified by Organization Details LastModified Time 09/02/2022 09/02/2022 72-year-old fema nunu who had biliary obstruction. She had ERCP followed by laparoscopic cholecystectomy on 08/14/2022. She is now doing well, tolerating diet. She is moving her bowels. She has had some issues with hemorrhoids since admission. She has some residual mild right upper quadrant discomfort but improving with time. Incisions are healing nicely. Reviewed intraoperative findings and benign pathology. We can plan for follow-up as needed but happy to see her back anytime if questions or concerns arise. [email or web address] Not available 09/02/2022 08:43:56 Plan of Treatment Reminders Order Date Submit Date Provider Last Modified By Organization Details Last Modified Time Details Appointments None record ed. Lab None record ed. Referral None record ed. Procedures None record ed. Surgeries None record ed. Imaging None record ed. Medication Orders None record ed. Patient TargetsNo targets recorded. Patient InstructionsNo instructions recorded. Reason for Referral None Reported. Results Created Date Observation Date Name Description Value Unit Range Abnormal Flag Note LastModifiedBy Organization Detail LastModifiedTime Result Notes None recorded. Procedures Surgical History Date Name Laterality Status Provider Name and Address Organization Details Recorded Time 08/14/19 23 Cholecystectomy completed Saloni Vazquez [facility] 09/02/2022 08:19:18 Total Hysterectomy completed Lucian Vazquez [facility] 09/02/2022 08:19:34 Imaging Results None recorded. Procedure Notes None recorded. Medical Equipment None Reported. Allergies Allergen ID Allergen Name Allergen Category Reaction Reaction Severity Criticality Documentation Date Start Date Code Code System Note Provider Name and Address Organization Details Recorded Time 671340 Compazine medicatio n Not available Not available Not available 09/02/2022 50320 6 RxNorm Salonibeverly Vazuqez [facility] 08:15:30 724911 Substance with sulfonami de structure and antibacte rial mechanism of action (substanc e) medicatio n Not available Not available Not available 09/02/2022 58637 8003 [facility] 08:15:40 804822 morphine medicatio n Not available Not available Not available 09/02/2022 7052 RxNorm [facility] 08:15:50 Medications Name Sig Start Date Stop Date Status Note LastModified by Organization Details LastModified Time paroxetine 10 mg tablet Take 1 tablet every day by oral route. active Not Available Not Available No t Available oxybutynin chloride ER 10 mg tablet,extende d release 24 hr Take 1 tablet every day by oral route. active Not Available Not Available No t Available esomeprazole magnesium 20 mg capsule,delaye d release Take 1 capsule every day by oral route. active Not Available Not Available No t Available Vitals Date Recorded Body weight Heart rate Systolic blood pressure Diastolic blood pressure Provider Name and Address Organization Details Last Updated DateTime 09/02/2022 20311.79 g 63 /min 133 mm[Hg] 93 mm[Hg] [facility] 09/02/2022 08:20:11 Social History None recorded. Functional Status None recorded. Mental Status None recorded. Family History Relationship Description Onset Age of this Age Resolved Age Notes LastModified by Organization Details LastModified Time Brother Malignant neoplasm of lung 58 [email or web address] Not available 2022 08:21:00 Brother Malignant tumor of colon [email or web address] Not available 2022 08:21:19 Brother Heart disease [email or web address] Not available 2022 08:22:46 Sister Malignant neoplasm of lung 71 [email or web address] Not available 2022 08:21:00 Father Malignant tumor of colon [email or web address] Not available 2022 08:21:19 Father Cerebrovascu lar accident 81 [email or web address] Not available 08:22:07 Father Heart disease [email or web address] Not available 2022 08:22:46 Mother Cerebrovascu lar accident 98 [email or web address] Not available 08:22:07 Medical History No medical history recorded. Gynecological HistoryNo gynecological history recorded. Obstetrics History GPAL:G 0 P 0 0 0 0 Past Encounters Encounter ID Performer Location Encounter Start Date Encounter Closed Date Diagnosis/Indication Diagnosis SNOMED-CT Code Diagnosis ICD10 Code Diagnosis Note [id number] OMAR SCHULZ MD GENERAL SURGERY [address] [place] [address] 09/02/2022 08:04:40 09/03/2022 04:06:26 Calculus of bile duct with obstruction 2146145 K80.37 Health Concerns Section Related Observation LastModified by Organization Detai ls LastModified Time None Recorded Concern Status LastModified by Organization Details LastModified Time None Recorded Advance Directives Directive None Recorded Payers Insurance Date Sequence Insurance Name Policy Number Policy Abbasi Covered Member ID Abbasi Member ID Guarantor Name 09/02/2022 2 AARP (MEDICARE SUPPLEMENT) Yeimi Martino [id number] Yeimi Martino 09/02/2022 1 [place] Yeimi Martino [id number] Yeimi Martino OBGyn Episode No OBEpisode recorded.
--- OUTSIDE RECORDS SUMMARY | 2024-09-29 13:51 | XMS_ITS | Data Portability ---
Author Organization [facility] Address [address] [place] [address] Assessment No assessment recorded. Plan of Treatment Reminders Order Date Submit Date Provider Last Modified By Organization Details Last Modified Time Details Appointments None recorded. Lab rapid strep group A, throat 2022 023 [facility], [address] [place] [address], [address], 16:55:39 Referral None recorded. Procedures None recorded. Surgeries None recorded. Imaging None recorded. Medication Orders amoxicillin 500 mg tablet 2022 023 [facility], [address], [address], 16:55:44 Patient TargetsNo targets recorded. Patient InstructionsNo instructions recorded. Reason for Referral None Reported. Results Created Date Observation Date Name Description Value Unit Range Abnormal Flag Note LastModifiedBy Organization Detail LastModifiedTime 07/04/1907/03/2022 rapid strep group A, throa t Strep negati ve Not Available [address], [address], 07/03/2022 16:26:29 07/04/19 23 07/03/2022 rapid strep group A, throa t Culture No Not Available [address], [address], 07/03/2022 16:26:29 Result Notes None recorded. Problems Name Problem SNOMED Code Status Onset Date Resolution Date Notes Provider Name and Address Organization Details Recorded Time Hypothyroidism 37688376 Active CHELSEA Santiago [facility] 3 16:35:05 Problem Notes None recorded. Procedures Surgical History Date Name Laterality Status Provider Name and Address Organization Details Recorded Time Hysterectomy completed Trista TRAN [facility] 07/03/2022 16:39:05 Imaging Results None recorded. Procedure Notes None recorded. Medical Equipment None Reported. Allergies Allergen ID Allergen Name Allergen Category Reaction Reaction Severity Criticality Documentation Date Start Date Code Code System Note Provider Name and Address Organization Details Recorded Time 945323 Substance with sulfonami de structure and antibacte rial mechanism of action (substanc e) medicatio n rash Not available [facility] 07/03/2022 54431 8003 SNOMED CHELSEA Crabtree [facility] 3 16:33:36 670614 Compazine medicatio n Not available Not available [facility] 07/03/2022 14612 6 RxNorm CHELSEA Crabtree [facility] 3 16:33:45 Medications Name Sig Start Date Stop Date Status Note LastModified by Organization Details LastModified Time amoxicillin 500 mg capsule TAKE 1 CAPSULE BY MOUTH TWICE DAILY FOR 10 DAYS active Not Available Not Available No t Available tramadol 37.5 mg-acetamin ophen 325 mg tablet TAKE 1 TABLET BY MOUTH 4 TIMES DAILY NEEDED 07/03 completed Not Available Not Available Not Available meloxicam 15 mg tablet TAKE 1 TABLET BY MOUTH ONCE DAILY 07/03 completed Not Available Not Available Not Available amoxicillin 500 mg tablet Take 1 tablet twice a day by oral route for 10 days. 2022 active Not Available Not Available Not Avai lable levothyroxi ne 25 mcg tablet TAKE 1 TABLET BY MOUTH ONCE DAILY active Not Available Not Available No t Available paroxetine 20 mg tablet TAKE 1 TABLET BY MOUTH ONCE DAILY FOR 90 DAYS active Not Available Not Available No t Available esomeprazol e magnesium 40 mg capsule,del ayed release TAKE 1 CAPSULE BY MOUTH ONCE DAILY active Not Available Not Available No t Available methylpredn isolone 4 mg tablets in a dose pack TAKE BY MOUTH DIRECTED ON INSIDE OF PACKAGE 07/03 completed Not Available Not Available Not Available oxybutynin chloride 5 mg tablet TAKE 1 TABLET BY MOUTH TWICE DAILY active Not Available Not Available No t Available Vitals Date Recorded Body weight Body mass index (BMI) Body height Body temperature Heart rate Oxygen saturation Oxygen saturation in Arterial blood by Pulse oximetry Respiratory rate Systolic blood pressure Diastolic blood pressure Provider Name and Address Organization Details Last Updated DateTime 30937.3 6 g 25 kg/m2 157.48 cm 98.6 [degF] 106 /min 97 % 97 % 18 /min 128 mm[Hg] 78 mm[Hg] Trista Johnson [place] - [facility] 16:32:32 Social History Question Answer Notes LastModified by Organizat ion Details LastModified Time Tobacco Smoking Status Former Smoker Trista Johnson null, [place] - [facility] 07/03/2022 16:37:13 Do You Have An Advance Directive? No Information not available 07/03/2022 Are You Blind Or Do You Have Difficulty Seeing? No Information not available 07/03/2022 What Is Your Level Of Caffeine Consumption? Occasional Information not available 07/03/2022 In The 14 Days Before Symptom Onset, Have You Had Close Contact With A Laboratory-confir med COVID-19 While That Case Was Ill? No Information not available 07/03/2022 In The 14 Days Before Symptom Onset, Have You Had Close Contact With A Person Who Is Under Investigation For COVID-19 While That Person Was Ill? No Information not available 07/03/2022 Have You Been To An Area Known To Be High Risk For COVID-19? No Information not available 07/03/2022 Are You Deaf Or Do You Have Serious Difficulty Hearing? No Information not available 07/03/2022 What Type Of Diet Are You Following? REGULAR Information not available 07/03/2022 Have You Processed Blood Or Body Fluids From An Ebola Virus Disease Patient Without Appropriate PPE? No Information not available 07/03/2022 Do You Reside In Or Have You Traveled To An Area Where Ebola Virus Transmission Is Active? No Information not available 07/03/2022 Have There Been Any Changes To Your Family Or Social Situation? No Information no t available 07/03/2022 What Is The Fluoride Status Of Your Home? Fluoridated Information not available 07/03/2022 When Did You Quit Smoking? 16+yearskaran fraser Information not available 07/03/2022 Have You Recently Or Are You Planning To Travel To An Area With Zika Virus? No Information not available 07/03/2022 Do You Have A Medical Power Of Hanging Flags Decorator? No Information not available 07/03/2022 What Is Your Relationship Status? Information not available 07/03/2022 Do You Have Smoke And Carbon Monoxide Detectors In Your Home? Yes Information not available 07/03/2022 Are You Passively Exposed To Smoke? No Information no t available 07/03/2022 Do You Have Difficulty Walking Or Climbing Stairs? No Information not available 07/03/2022 Sex: Female Functional Status Question Answer Note LastModified by Organizat ion Details LastModified Time Do you use any illicit or recreational drugs? No Information not available 07/03/2022 What is your level of alcohol consumption? None Information not available 07/03/2022 Do you have difficulty doing errands alone? No Information not available 07/03/2022 Are you able to care for yourself? Yes Information not available 07/03/2022 Do you have difficulty dressing or bathing? No Information not available 07/03/2022 What is your exercise level? None Information not available 07/03/2022 Mental Status Question Answer Note LastModified by Organization D etails LastModified Time Do you have difficulty concentrating, remembering or making decisions? No Information no t available 07/03/2022 Family History Nothing Reported. Medical History No medical history recorded. Gynecological History Statement/Question Response Menses Monthly N Abnormal Pap N If Post Menopausal, Age at Menopause 39 Date of Last Pap Smear Date of Last Mammogram Date of Last Colonoscopy Obstetrics History GPAL:G 2 P 2 0 1 0 Type Value Multiple Births 0 Full Term 2 Induced 0 Spontaneous 1 Premature 0 Living 0 Ectopics 0 Total 2 Immunizations Vaccine Type Date Status Note Provider Nam e and Address Organization Details Recorded Time zoster recombinant 0 completed Trista Johnson null, [place] - [facility] 07/03/2022 16:32:56 Influenza, high-dose, quadrivalent, PF 2 completed Trista Johnson null, [facility] 07/03/2022 16:32:56 Influenza, high-dose, quadrivalent, PF 0 completed Trista Johnson null, [facility] 07/03/2022 16:32:56 COVID-19, mRNA, LNP-S, PF, 100 mcg/0.5mL dose or 50 mcg/0.25mL dose 1 completed Trista Alex null, [place] - [facility] 07/03/2022 16:32:56 COVID-19, mRNA, LNP-S, PF, 100 mcg/0.5mL dose or 50 mcg/0.25mL dose 1 completed Trista Johnson null, [facility] 07/03/2022 16:32:56 pneumococcal polysaccharide PPV23 6 completed Trista Johnson null, [facility] 07/03/2022 16:32:56 Pneumococcal conjugate PCV 13 9 completed Trista Johnson null, [facility] 07/03/2022 16:32:56 zoster live 6 completed Trista Johnson null, [facility] 07/03/2022 16:32:56 Influenza, high-dose, trivalent, PF 9 completed Trista Johnson null, [facility] 07/03/2022 16:32:56 Influenza, high-dose, trivalent, PF 8 completed Trista Johnson null, [facility] 07/03/2022 16:32:56 Td (adult), 2 Lf tetanus toxoid, preservative free, adsorbed 7 completed Trista Johnson null, [facility] 07/03/2022 16:32:56 Past Encounters Encounter ID Performer Location Encounter Start Date Encounter Closed Date Diagnosis/Indication Diagnosis SNOMED-CT Code Diagnosis ICD10 Code Diagnosis Note [id number] Marisa Lorenzana APRN [address] [address] 07/03/2022 16:07:39 07/03/2022 16:46:50 Pharyngitis 517010349 J02.9 Exposure t o Streptococcus 694380632 Z20.818 contact precaution s discussed Health Concerns Section Related Observation LastModified by Organization Detai ls LastModified Time None Recorded Concern Status LastModified by Organization Details LastModified Time None Recorded Advance Directives Directive N: Payers Insurance Date Sequence Insurance Name Policy Number Policy Abbasi Covered Member ID Abbasi Member ID Guarantor Name 08/12/2022 2 AARP Yeimi Martino [id number] Yeimi Martino 08/12/2022 [place] Yeimi Martino [id number] Yeimi Martino 07/03/2022 1 [employer] [place] - [facility] (MEDICARE) Yeimi Martino [id number] Yeimi Martino Notes Date Note Type Note Provider Name and Address Organization Details Recorded Time 07/03/2022 text/html 72 yr old female with a sore throat. Stated one of her grandchildren has strep. Marisa Lorenzana, [employer] [address], [place], [address], [place] - [facility] 07/06/2022 10:33:59 OBGyn Episode No OBEpisode recorded.
--- OUTSIDE RECORDS SUMMARY | 2024-09-29 13:51 | XMS_ITS | Clinical Summary ---
Author Organization Healthcare Address [address] [place] [address] Care Team Providers Care Mess Cook Name Role Phone Sukhwinder Pickens MD Primary Care Provider [phone] Family History Medical History Relation Name Comments Cardiac disorder Father Other cancer Father Stroke Mother Cardiac disorder Other 1 Stroke Other 2 Other cancer Other 3 Other cancer Sibling Relation Name Status Comments Father Mother Other 1 Other 2 Other 3 Sibling Social History Tobacco Use Types Packs/Day Years Used Date Smoking Tobacco: Never Comments Unknown Sex and Gender Information Value Date Recorded Sex Assigned at Not on file Legal Sex Female 7:37 PM EDT Gender Identity Not on file Sexual Orientation Not on file Last Filed Vital Signs Vital Sign Reading Time Taken Comments Blood Pressure 128/76 04/21/2019 8:14 AM EST Pulse 70 04/21/2019 8:14 AM EST Temperature - - Respiratory Rate - - Oxygen Saturation - - Inhaled Oxygen Concentration - - Weight 61.7 kg (136 lb) 04/21/2019 8:14 AM EST Height 157.5 cm (5' 2 ) 04/21/2019 8:14 AM EST Body Mass Index 24.88 04/21/2019 8:14 AM EST Plan of Treatment Not on file Care Teams Mess Cook Relationship Specialty Start Date End Date Sukhwinder Pickens MD [address] [place] [address] PCP - General 08/23/20
--- OUTSIDE RECORDS SUMMARY | 2024-09-29 13:52 | XMS_ITS | Clinical Summary ---
Author Organization [facility] Address [address] [place] [address] Phone Care Team Providers Care Voice Data Communications Engineer Name Role Phone Unavailable Primary Care Provider Unavailabl e Social History Tobacco Use Types Packs/Day Years Used Date Smoking Tobacco: Never Assessed Comments Unknown Sex and Gender Information Value Date Recorded Sex Assigned at Not on file Legal Sex Female 9:54 AM EST Gender Identity Not on file Sexual Orientation Not on file Plan of Treatment Health Maintenance Due Date Last Done Comments Annual Wellness Exam 02/19/1955 Hepatitis C Screening 02/19/1970 DTaP/TDaP/Td (1 - Tdap) 02/19/1971 Cologuard 02/19/1997 Colon Cancer Screening 02/19/1997 Colonoscopy 02/19/1997 FIT 02/19/1997 Sigmoidoscopy 02/19/1997 Virtual Colonography 02/19/1997 Pneumococcal Vaccine 50+ (1 of 1 - PCV) 02/19/2002 Zoster (1 of 2) 02/19/2002 Bone Density Screening 02/19/2017 COVID-19 Vaccine (2023-2 5 season) 2023 Influenza Vaccine (Season Ended) 2024 Hepatitis B Vaccine Aged Out No longe r eligible based on patient's age to complete this topic Meningococcal B Vaccine Aged Out No l onger eligible based on patient's age to complete this topic
== END 2024-09-28 23:59 | disposition home or self-care (01) ==
LOC: LAB.DROPOF 09-29 13:49
PROVIDERS: PCP Student in an Organized Health Care Education/Training Program; Visit Provider Student in an Organized Health Care Education/Training Program
DX: N39.0 Urinary tract infection, site not specified (principal)
CPT/HCPCS: 87086